=== PATIENT | male | born 1995 | race African-American/Black ===

== ENCOUNTER 2018-01-07 11:23 | Emergency (ER) | payer OTHER ==
[2018-01-07] MEDS: guaiFENesin SYRUP 200 MG/10 ML UDC PO (12:31)
[2018-01-07 13:04] LABS: HEMATOCRIT 39.8 % (42.0-52.0); HEMOGLOBIN 13.5 g/dl (13.5-17.5); MEAN CORPUSCULAR HEMOGLOBIN 29.5 pg (27.0-33.0); MEAN CORPUSCULAR HGB CONC 33.9 g/dl (32.0-36.5); MEAN CORPUSCULAR VOLUME 87.1 fl (80.0-96.0); PLATELET COUNT, AUTOMATED 325 10^3/uL (150-450); RED BLOOD COUNT 4.57 10^6/uL (4.30-6.10); WHITE BLOOD COUNT 6.5 10^3/uL (4.0-10.0)
[2018-01-07 13:17] LABS: AMPHETAMINES LEVEL URINE NEGATIVE (NEGATIVE); BARBITURATES URINE NEGATIVE (NEGATIVE); BENZODIAZEPINES URINE NEGATIVE (NEGATIVE); CANNABINOIDS URINE POSITIVE (NEGATIVE); COCAINE METABOLITE URINE NEGATIVE (NEGATIVE); METHADONE URINE NEGATIVE (NEGATIVE); OPIATES URINE NEGATIVE (NEGATIVE); PHENCYCLIDINE URINE NEGATIVE (NEGATIVE)
[2018-01-07 14:01] LABS: ACETAMINOPHEN LEVEL < 2.0 UG/ML (10.0-30.0); ALBUMIN 3.5 GM/DL (3.2-5.2); ALBUMIN/GLOBULIN RATIO 0.78 (1.00-1.93); ALKALINE PHOSPHATASE 65 U/L (45-117); ALT/SGPT 20 U/L (12-78); ANION GAP 7 MEQ/L (8-16); AST/SGOT 22 U/L (7-37); BILIRUBIN,DIRECT 0.1 MG/DL (0.0-0.2); BILIRUBIN,TOTAL 0.3 MG/DL (0.2-1.0); BLOOD UREA NITROGEN 13 MG/DL (7-18); CALCIUM LEVEL 8.5 MG/DL (8.5-10.1); CARBON DIOXIDE LEVEL 26 MEQ/L (21-32); CHLORIDE LEVEL 105 MEQ/L (98-107); CREATININE FOR GFR 0.86 MG/DL (0.70-1.30); ETHYL ALCOHOL (ETHANOL) < 0.003 % (0.000-0.010); GLOMERULAR FILTRATION RATE > 60.0 (>60); GLUCOSE, FASTING 84 MG/DL (70-100); POTASSIUM SERUM 4.2 MEQ/L (3.5-5.1); SALICYLATE LEVEL < 1.7 MG/DL (5.0-30.0); SODIUM LEVEL 138 MEQ/L (136-145); THYROID STIMULATING HORMONE 0.591 uIU/ML (0.358-3.740)
[2018-01-07 20:08] LABS: CK-MB VALUE MASS < 1.0 NG/ML (<3.6); CPK CREATINE PHOSPHOKINASE 305 U/L (39-308); MB/CK RELATIVE INDEX 0.33 (< OR =4); TROPONIN I < 0.02 NG/ML (< 0.10)
== END 2018-01-07 21:51 ==
LOC: M ED 11:23
DX: R45.851 Suicidal ideations (principal); F32.9 Major depressive disorder, single episode, unspecified; R00.1 Bradycardia, unspecified; J45.909 Unspecified asthma, uncomplicated; Z87.891 Personal history of nicotine dependence
CPT/HCPCS: 93005

== ENCOUNTER 2018-01-27 14:12 | Emergency (ER) | payer OTHER | END 2018-01-27 15:02 | disposition home or self-care (01) | LOC: M ED 14:12 | DX: S60.221A Contusion of right hand, initial encounter (principal); W22.01XA Walked into wall, initial encounter; Y92.099 Unspecified place in other non-institutional residence as the place of occurrence of the external cause; Y93.9 Activity, unspecified; Y99.9 Unspecified external cause status; R45.4 Irritability and anger; F32.9 Major depressive disorder, single episode, unspecified; Z79.899 Other long term (current) drug therapy | CPT/HCPCS: 73130 ==

== ENCOUNTER 2018-07-13 13:59 | Inpatient (IN) | payer OTHER ==
[~2018-07-13] VITALS: Ht 188 cm; Wt 82.3 kg
[~2018-07-13 13:59] MED LIST: ARIP1TAB6 PO; IBUP-1022 PO; MIRT15TA3 PO; PARO20TA3 PO
[2018-07-13 14:47] LABS: HEMATOCRIT 42.1 % (42.0-52.0); HEMOGLOBIN 14.3 g/dl (13.5-17.5); MEAN CORPUSCULAR VOLUME 88.3 fl (80.0-96.0); PLATELET COUNT, AUTOMATED 309 10^3/uL (150-450); RED BLOOD COUNT 4.77 10^6/uL (4.30-6.10); WHITE BLOOD COUNT 5.9 10^3/uL (4.0-10.0)
[2018-07-13] MEDS ORDERED: VENTAER INH (14:53)
[2018-07-13] MEDS ORDERED: WELLTAB40 PO (14:53)
[2018-07-13 15:24] LABS: ACETAMINOPHEN LEVEL < 2.0 UG/ML (10.0-30.0); ALBUMIN 4.1 GM/DL (3.2-5.2); ALT/SGPT 15 U/L (12-78); BILIRUBIN,DIRECT 0.2 MG/DL (0.0-0.2); BILIRUBIN,TOTAL 0.7 MG/DL (0.2-1.0); BLOOD UREA NITROGEN 15 MG/DL (7-18); CALCIUM LEVEL 9.4 MG/DL (8.5-10.1); CARBON DIOXIDE LEVEL 29 MEQ/L (21-32); CHLORIDE LEVEL 104 MEQ/L (98-107); CREATININE FOR GFR 1.05 MG/DL (0.70-1.30); ETHYL ALCOHOL (ETHANOL) < 0.003 % (0.000-0.010); GLOMERULAR FILTRATION RATE > 60.0 (>60); GLUCOSE, FASTING 90 MG/DL (70-100); POTASSIUM SERUM 4.3 MEQ/L (3.5-5.1); SALICYLATE LEVEL < 1.7 MG/DL (5.0-30.0); SODIUM LEVEL 139 MEQ/L (136-145); TOTAL PROTEIN 8.3 GM/DL (6.4-8.2)
[2018-07-13 16:03] LABS: AMPHETAMINES LEVEL URINE NEGATIVE (NEGATIVE); BARBITURATES URINE NEGATIVE (NEGATIVE); BENZODIAZEPINES URINE NEGATIVE (NEGATIVE); CANNABINOIDS URINE POSITIVE (NEGATIVE); COCAINE METABOLITE URINE NEGATIVE (NEGATIVE); METHADONE URINE NEGATIVE (NEGATIVE); OPIATES URINE NEGATIVE (NEGATIVE); PHENCYCLIDINE URINE NEGATIVE (NEGATIVE)
[2018-07-13] MEDS ORDERED: LORazepam 1 MG TAB PO STA (16:39)
[2018-07-13] MEDS ORDERED: MOM 30ML SUSPENSION UDC PO PRN (18:45)
[2018-07-13] MEDS ORDERED: ACETAMINOPHEN TAB 650MG DOSE (2X325MG) PO PRN (18:45)
[2018-07-13] MEDS ORDERED: MAALOX 30 ML SUSP *UDC PO PRN (18:45)
[2018-07-13 20:19] VITALS: BP 131/83
[2018-07-13] MEDS: ESCITALOPRAM OXALATE 10 MG TAB (LEXAPRO) PO SCH (21:30)
[2018-07-14] MEDS: OLANZapine ORAL DISINTEGRATING TAB 5MG PO PRN (06:22)
[2018-07-14 06:39] VITALS: BP 124/75
[2018-07-14] MEDS: ESCITALOPRAM OXALATE 10 MG TAB (LEXAPRO) PO SCH (09:00)
--- NOTE | 2018-07-14 09:58 | HPEPDOC ---
General Date of Admission Jul 13, 2018 at 18:33 Date of Service: Jul 14, 2018 Attending Physician: DESTINY FERNANDEZ MD Chief Complaint The patient is a 22-year-old male admitted with a reason for visit of Unspecified Depressive D/O. History of Present Illness Patient is a 22-year-old admitted to inpatient psychiatric unit on account of suicidal ideation. Patient also admitted to auditory hallucinations. A day prior to presentation tried to cut himself with a knife. On assessment, he reports a prior medical history significant for asthma for which he has an inhaler he uses as needed. Currently, he denies any symptoms, denies chest pain, denies shortness of breath, weakness, nausea, abdominal pain, chills, fever. Home Medications Scheduled Bupropion HCl (Wellbutrin Xl) 300 Mg Tab.er.24h, 300 MG PO DAILY, (Reported) Scheduled PRN Albuterol Sulfate (Ventolin Hfa) 18 Gm Hfa.aer.ad, 2 PUFF INH Q4H PRN for SHORTNESS OF BREATH, (Reported) Allergies Coded Allergies: No Known Allergies (Unverified , 01/07/18) Past Medical History Medical History Asthma Surgical History Denies Family History denies Social History * Smoker: Denies Alcohol: occationally Drugs: marijuana A-FIB/CHADSVASC A-FIB History Current/History of A-Fib/PAF?: No Current PO Anticoag Therapy: No Review of Systems Other systems A 10 point pertinent review of systems was completed, negative except as stated in the history of presenting illness. Physical Examination Other physical findings GENERAL: NAD SKIN : Warm, dry intact HEENT: Atraumatic, normocephalic, PERRL, moist mucous membrane CARDIOVASCULAR: Regular rate and rhythm, S1S2, no JVD, no edema, distal pulses + and palpable RESP: CTAB, no accessory muscle use noted ABDOMEN: BS+ non distended non tender MS: no joint deformities NEURO: Alert and oriented x 3, CN2-12 grossly intact PSYCH: no anxiety or agitation, depressed affect. Vital Signs Vital Signs Date Time Temp Pulse Resp B/P (MAP) Pulse Ox O2 Delivery O2 Flow Rate FiO2 07/14/18 08:32 Room Air 07/14/18 06:39 98.4 67 14 124/75 (91) 07/13/18 20:31 98 Laboratory Data Labs 24H Laboratory Tests 2 07/13/18 14:35: Nucleated Red Blood Cells % (auto) 0.0, Anion Gap 6L, Glomerular Filtration Rate > 60.0, Calcium Level 9.4, Aspartate Amino Transf (AST/SGOT) 18, Alanine Aminotransferase (ALT/SGPT) 15, Alkaline Phosphatase 57, Total Bilirubin 0.7, Direct Bilirubin 0.2, Total Protein 8.3H, Albumin 4.1, Albumin/Globulin Ratio 0.98L, Thyroid Stimulating Hormone (TSH) 0.680, Salicylates Level < 1.7L, Acetaminophen Level < 2.0L, Ethyl Alcohol Level < 0.003 07/13/18 15:13: Urine Amphetamines Screen NEGATIVE, Urine Benzodiazepines Screen NEGATIVE, Urine Opiates Screen NEGATIVE, Urine Methadone Screen NEGATIVE, Urine Barbiturates Screen NEGATIVE, Urine Phencyclidine Screen NEGATIVE, Urine Cocaine Metabolite Screen NEGATIVE, Urine Cannabinoids Screen POSITIVEH CBC/BMP Laboratory Tests 07/13/18 14:35 Red Blood Count 4.77, Mean Corpuscular Volume 88.3, Mean Corpuscular Hemoglobin 30.0, Mean Corpuscular Hemoglobin Concent 34.0, Red Cell Distribution Width 12.4 Assessment/Plan Asthma -No current exacerbation present -Prescribe albuterol for use as needed Polysubstance abuse with THC -management by primary team Suicidal Ideation -Management by primary team DVT prophylaxis -not indicated, patient is frequently ambulatory At this time patient has no acute medical problems or underlying comorbidities requiring active follow-up. Acute problems are being managed by primary team. Medical team will sign off, please re-consult as needed. Plan / VTE VTE Prophylaxis Ordered?: No VTE Exclusion Mechanical Proph: Low Risk for VTE ANNA DIAMOND Jul 14, 2018 09:58
[2018-07-14] MEDS ORDERED: ALBUTEROL 90 MCG/ACT 8GM HFA INHALER INH PRN (13:30)
--- NOTE | 2018-07-14 14:50 | MHHPEPDOC ---
General Date Of Admission: Jul 13, 2018 Legal Status: 9.39 Chief Complaint He bought himself to the ED for SI and self inflicted wounds on his arm History of Present Illness HISTORY OF THE PRESENT ILLNESS: Patient is a 22 -year-old , male, who, according to ED report: "Patient arrived with self-inflicted superficial cuts to his forearm & suicidal ideation. He stated to [facility] that he was depressed & suicidal. Following medical clearance, MHE was completed. Upon entering the exam room patient was noted to pacing rapidly in the room & breathing heavily. This continued throughout interview. He was quite guarded & kept repeating that he was "fine" & that coming here was a mistake. He repeatedly stated that he wanted to go back to [place]. Patient was agitated, irritable & very anxious, crying throughout the interview. At times he had to stop to compose himself. He admitted that he has been upset about "everything", including his life here at [place] & also back home in [place]. He did not elaborate upon this, aside from saying that his girlfriend of 1 year ended their relationship 2 days ago. He remained quite agitated & insisted that he didn't want help. When offered a PRN, he accepted willingly." Psychiatric Review of Systems Depression (2 or more weeks): depressed mood, insomnia/hypersomnia, feelings of excess/guilt, feelings of worthlesness, decreased energy, difficulty concentrating, psychomotor changes, suicidal thoughts, other (hopeless and helpless) Miriam (4 or more days of): denies Psychosis: auditory hallucination (Like random noises like a phone buzzing), paranoia PTSD: denies Anxiety: gen/non-specific anxiety, situational anxiety, stressor related anxiety Anxiety/ 6 months or more of: restlessness, keyed up, easily fatigued, difficulty concentrating, muscle tension, sleep disturbance Past Psychiatric History Previous Psychiatric Diagnosis: Depression and bipolar disorder Previous [facility]iatric [facility]: [facility] Suicide Attempts: Denies Psychiatric Follow-up: [facility] Psychiatric medications: Welbutrin 300 mgs po daily. Past Medical History Medical Problems Denies Head Injury: No Seizures: No Hospitalizations: Yes Surgeries: No Family Medical/Psychiatric HX Medical Problems Denies Psychiatric Disorders: No Addiction: No Suicide Attemps/Completions: Yes (his mother) Addiction History alcohol (not anymore. the last time was 3 days ago. ) Social History Childhood: Was born and raised in [place], grew up with mom and dad, two broth ers and one sister, got along with them, enjoyed going to school.. Abuse/Trauma: Denies Current Living Situation: Lives on post Education: HS diploma Employment: [employer] Social Support: Behavioral health Legal: Denies Marital: single, no children. Mental Status Examination General Appearance: well groomed, appears stated age, hospital scubs/clothing Build: average Demeanor: other (sleepy, with his eyes closed during the interview) Eye Contact: poor (he was sleepy, was sitting with eyes closed) Activity: slowed Behavior: cooperative, other (very sleepy, pened his eyes only 3x) Speech: slurred, low in volume, non-spontaneous, impoverished (Patient was sleepy, wouldn't open his eyes, his responses were very short) Mood: depressed, anxious Affect: constricted, appropriate, congruent Thought Process: depressed, slow Thought Content (Delusions): none reported Thought Content (Other): none reported Thought Content (Aggressive): none reported Perception (Hallucinations): none reported Perception (Other): none reported Cognition (Impairment of): attention/concentration Cognition(Intelligence Est.): average Oriented: Awake, Alert, Oriented times three Insight: poor Judgment: Poor Psychosis: Denies Assessment Patient was very sleepy, he cooperated with the interview but he said he almost didn't sleep, because he was admitted last night. Initial Treatment Plan 1. Patient was admitted on a [9.39] status. 2. Complete history was obtained. 3. With patients permission, family will be contacted and database will be expanded. 4. Patients medication regimen will be reviewed and changed accordingly. 5. Patient will be provided with protected environment. 6. Patient will be treated with individual, group, and milieu therapies. 7. Patient will receive supportive psych-education. 8. Discharge planning will commence immediately. 9. Outpatient follow-up treatment will be strongly recommended. 10. The initial treatment plan will focus initially on: * Depression. * anxiety * Risk for suicide. * Substance abuse. ESTIMATED LENGTH OF STAY: 5-7 DAYS. TIME SPENT COUNSELING AND COORDINATING INITIAL CARE: 45 minutes. Vital Signs Vital Signs Date Time Temp Pulse Resp B/P (MAP) Pulse Ox O2 Delivery O2 Flow Rate FiO2 07/14/18 08:32 Room Air 07/14/18 06:39 98.4 67 14 124/75 (91) 07/13/18 20:31 98 Laboratory Data 24H Labs Laboratory Tests 2 07/13/18 14:35: Nucleated Red Blood Cells % (auto) 0.0, Anion Gap 6L, Glomerular Filtration Rate > 60.0, Calcium Level 9.4, Aspartate Amino Transf (AST/SGOT) 18, Alanine Aminotransferase (ALT/SGPT) 15, Alkaline Phosphatase 57, Total Bilirubin 0.7, Direct Bilirubin 0.2, Total Protein 8.3H, Albumin 4.1, Albumin/Globulin Ratio 0.98L, Thyroid Stimulating Hormone (TSH) 0.680, Salicylates Level < 1.7L, Acetaminophen Level < 2.0L, Ethyl Alcohol Level < 0.003 07/13/18 15:13: Urine Amphetamines Screen NEGATIVE, Urine Benzodiazepines Screen NEGATIVE, Urine Opiates Screen NEGATIVE, Urine Methadone Screen NEGATIVE, Urine Barbiturates Screen NEGATIVE, Urine Phencyclidine Screen NEGATIVE, Urine Cocaine Metabolite Screen NEGATIVE, Urine Cannabinoids Screen POSITIVEH CBC/BMP Laboratory Tests 07/13/18 14:35 Red Blood Count 4.77, Mean Corpuscular Volume 88.3, Mean Corpuscular Hemoglobin 30.0, Mean Corpuscular Hemoglobin Concent 34.0, Red Cell Distribution Width 12.4 Medications Scheduled Bupropion HCl (Wellbutrin Xl) 300 Mg Tab.er.24h, 300 MG PO DAILY, (Reported) Scheduled PRN Albuterol Sulfate (Ventolin Hfa) 18 Gm Hfa.aer.ad, 2 PUFF INH Q4H PRN for SHORTNESS OF BREATH, (Reported) Allergies Coded Allergies: No Known Allergies (Unverified , 01/07/18) SOLITARIO YADAV MD Jul 14, 2018 14:50
[2018-07-14 18:41] VITALS: BP 114/57
[2018-07-14] MEDS: traZODone 50 MG TAB PO PRN (20:22)
[2018-07-15 06:39] VITALS: BP 108/56
[2018-07-15] MEDS: buPROPion **XL** TABLET 150MG (WELLBUTRIN XL) PO SCH (08:46)
[2018-07-15] MEDS: OLANZapine ORAL DISINTEGRATING TAB 5MG PO PRN (16:08)
[2018-07-15 18:00] VITALS: BP 123/63
--- NOTE | 2018-07-15 19:25 | MHIPNPDOC ---
[facility] Progress Note Progress Note DATE OF SERVICE: 07/15/18 HISTORY: Patient is a 22 -year-old , male, who, according to ED report: "Patient arrived with self-inflicted superficial cuts to his forearm & suicidal ideation. He stated to [facility] that he was depressed & suicidal. Following medical clearance, MHE was completed. Upon entering the exam room patient was noted to pacing rapidly in the room & breathing heavily. This continued throughout interview. He was quite guarded & kept repeating that he was "fine" & that coming here was a mistake. He repeatedly stated that he wanted to go back to [place]. Patient was agitated, irritable & very anxious, crying throughout the interview. At times he had to stop to compose himself. He admitted that he has been upset about "everything", including his life here at [place] & also back home in [place]. He did not elaborate upon this, aside from saying that his girlfriend of 1 year ended their relationship 2 days ago. He remained quite agitated & insisted that he didn't want help. When offered a PRN, he accepted willingly." VITAL SIGNS: See below. NEW TEST RESULTS: See below CURRENT MEDICATIONS: See below. MENTAL STATUS EXAMINATION: General Appearance: well groomed, appears stated age, hospital scubs/clothing Build: average Demeanor: cooperative, awake, pleasant Eye Contact: Good Activity: Average, he doesn't exhibit psychomotor retardation or agitation Behavior: cooperative, pleasant Speech: slurred, low in volume, spontaneous and fluent Mood: depressed Affect: constricted, less flat, appropriate, congruent Thought Process: depressed Thought Content (Delusions): none reported Thought Content (Other): none reported, he denies SI/HI Thought Content (Aggressive): none reported Perception (Hallucinations): none reported Perception (Other): none reported Cognition (Impairment of): attention/concentration Cognition(Intelligence Est.): average Oriented: Awake, Alert, Oriented times three Insight: poor Judgment: Poor Psychosis: Denies DIAGNOSES: 1. Unspecified mood disorder 2. Marijuana use Disorder 3. R/O Personality Disorder. ASSESSMENT: The patient is better today, he is awake, he reports feeling better, he wants to know if he will be discharged on Friday and I explained we don't do [employer] discharges on Fridays. he was receptive, took it well, said he is going to keep attending groups to learn coping skills. He denies feeling suicidal or having thoughts of self harm at this time, he denies HI. MANAGEMENT PLAN: Will continue with the same treatment plan TIME SPENT: 20 minutes. Vital Signs Vital Signs Date Time Temp Pulse Resp B/P (MAP) Pulse Ox O2 Delivery O2 Flow Rate FiO2 07/15/18 18:00 98.7 62 16 123/63 (83) 07/15/18 08:10 Room Air 07/13/18 20:31 98 Current Medications Current Medications Acetaminophen (Tylenol Tab) 650 mg Q6HP PRN PO HEADACHE or DISCOMFORT; Start 07/13/18 at 18:45 Al Hydrox/Mg Hydrox/Simethicone (Mylanta) 30 ml Q4HP PRN PO HEARTBURN/INDIGESTION; Start 07/13/18 at 18:45 Albuterol Sulfate (Proventil, Ventolin Hfa) 2 puff Q4HP PRN INH SHORTNESS OF BREATH; Start 07/14/18 at 13:30 Bupropion HCl (Wellbutrin Xl) 300 mg DAILY PO Last administered on 07/15/18at 08:46; Start 07/15/18 at 09:00 Escitalopram Oxalate (Lexapro) 10 mg DAILY PO ; Start 07/13/18 at 09:00; Stop 07/14/18 at 15:27; Status DC Home Med (Med Rec Complete!) ASDIRECTED XX ; Start 07/13/18 at 15:00; Stop 07/13/18 at 15:01; Status DC Lorazepam (Ativan) 1 mg STAT STAT PO Last administered on 07/13/18at 16:45; Start 07/13/18 at 16:39; Stop 07/13/18 at 16:40; Status DC Magnesium Hydroxide (Milk Of Magnesia) 30 ml DAILYPRN PRN PO CONSTIPATION; Start 07/13/18 at 18:45 Olanzapine (ZyPREXA ZYDIS) 5 mg Q6HP PRN PO ANXIETY/AGITATION Last administered on 07/15/18at 16:08; Start 07/13/18 at 18:45 Trazodone HCl (Desyrel) 50 mg QHSP PRN PO INSOMNIA Last administered on 07/14/18at 20:22; Start 07/13/18 at 18:45 Allergies Coded Allergies: No Known Allergies (Unverified , 01/07/18) SOLITARIO YADAV MD Jul 15, 2018 18:58
[2018-07-15] MEDS: traZODone 50 MG TAB PO PRN (20:49)
[2018-07-16 06:48] VITALS: BP 133/66
[2018-07-16] MEDS: OLANZapine ORAL DISINTEGRATING TAB 5MG PO PRN (08:37)
[2018-07-16] MEDS: buPROPion **XL** TABLET 150MG (WELLBUTRIN XL) PO SCH (08:37)
[2018-07-16 18:00] VITALS: BP 128/60
[2018-07-16] MEDS: traZODone 50 MG TAB PO PRN (21:18)
--- NOTE | 2018-07-16 21:28 | MHIPNPDOC ---
[facility] Progress Note Progress Note DATE OF SERVICE: 07/16/18 HISTORY: Patient is a 22 -year-old , male, who, according to ED report: "Patient arrived with self-inflicted superficial cuts to his forearm & suicidal ideation. He stated to [facility] that he was depressed & suicidal. Following medical clearance, MHE was completed. Upon entering the exam room patient was noted to pacing rapidly in the room & breathing heavily. This continued throughout interview. He was quite guarded & kept repeating that he was "fine" & that coming here was a mistake. He repeatedly stated that he wanted to go back to [place]. Patient was agitated, irritable & very anxious, crying throughout the interview. At times he had to stop to compose himself. He admitted that he has been upset about "everything", including his life here at [place] & also back home in [place]. He did not elaborate upon this, aside from saying that his girlfriend of 1 year ended their relationship 2 days ago. He remained quite agitated & insisted that he didn't want help. When offered a PRN, he accepted willingly." VITAL SIGNS: See below. NEW TEST RESULTS: See below CURRENT MEDICATIONS: See below. MENTAL STATUS EXAMINATION: General Appearance: well groomed, appears stated age, hospital scrubs/clothing Build: average Demeanor: cooperative, sleepy, pleasant Eye Contact: Good Activity: Slow, he is laying in bed, he is waking up from a nap Behavior: cooperative, pleasant Speech: slurred, low in volume, spontaneous and fluent Mood: depressed Affect: constricted, less flat, appropriate, congruent Thought Process: depressed Thought Content (Delusions): none reported Thought Content (Other): none reported, he denies SI/HI Thought Content (Aggressive): none reported Perception (Hallucinations): none reported Perception (Other): none reported Cognition (Impairment of): attention/concentration Cognition(Intelligence Est.): average Oriented: Awake, Alert, Oriented times three Insight: poor Judgment: Poor Psychosis: Denies DIAGNOSES: 1. Unspecified mood disorder 2. Marijuana use Disorder 3. R/O Personality Disorder. ASSESSMENT:The patient was resting in bed, sleepy and he reported he was taking a nap. He slept well last night, his appetite is good, he denies SI or Hi, denies AV hallucinations or delusions, he says he feels better. MANAGEMENT PLAN: Will continue with the same treatment plan TIME SPENT: 20 minutes. Vital Signs Vital Signs Date Time Temp Pulse Resp B/P (MAP) Pulse Ox O2 Delivery O2 Flow Rate FiO2 07/16/18 18:00 98.5 56 16 128/60 (82) 07/16/18 11:09 Room Air 07/13/18 20:31 98 Current Medications Current Medications Acetaminophen (Tylenol Tab) 650 mg Q6HP PRN PO HEADACHE or DISCOMFORT; Start 07/13/18 at 18:45 Al Hydrox/Mg Hydrox/Simethicone (Mylanta) 30 ml Q4HP PRN PO HEARTBURN/INDIGESTION; Start 07/13/18 at 18:45 Albuterol Sulfate (Proventil, Ventolin Hfa) 2 puff Q4HP PRN INH SHORTNESS OF BREATH; Start 07/14/18 at 13:30 Bupropion HCl (Wellbutrin Xl) 300 mg DAILY PO Last administered on 07/16/18at 08:37; Start 07/15/18 at 09:00 Escitalopram Oxalate (Lexapro) 10 mg DAILY PO ; Start 07/13/18 at 09:00; Stop 07/14/18 at 15:27; Status DC Home Med (Med Rec Complete!) ASDIRECTED XX ; Start 07/13/18 at 15:00; Stop 07/13/18 at 15:01; Status DC Lorazepam (Ativan) 1 mg STAT STAT PO Last administered on 07/13/18at 16:45; Start 07/13/18 at 16:39; Stop 07/13/18 at 16:40; Status DC Magnesium Hydroxide (Milk Of Magnesia) 30 ml DAILYPRN PRN PO CONSTIPATION; Start 07/13/18 at 18:45 Olanzapine (ZyPREXA ZYDIS) 5 mg Q6HP PRN PO ANXIETY/AGITATION Last administered on 07/16/18at 08:37; Start 07/13/18 at 18:45 Trazodone HCl (Desyrel) 50 mg QHSP PRN PO INSOMNIA Last administered on 07/16/18at 21:18; Start 07/13/18 at 18:45 Allergies Coded Allergies: No Known Allergies (Unverified , 01/07/18) SOLITARIO YADAV MD Jul 16, 2018 21:28
[2018-07-17 06:34] VITALS: BP 128/77
[2018-07-17] MEDS: OLANZapine ORAL DISINTEGRATING TAB 5MG PO PRN (08:21)
[2018-07-17] MEDS: buPROPion **XL** TABLET 150MG (WELLBUTRIN XL) PO SCH (08:21)
[2018-07-17 18:05] VITALS: BP 113/56
--- NOTE | 2018-07-17 21:07 | MHIPNPDOC ---
[facility] Progress Note Progress Note DATE OF SERVICE: 07/17/18 HISTORY: Patient is a 22 -year-old , male, who, according to ED report: "Patient arrived with self-inflicted superficial cuts to his forearm & suicidal ideation. He stated to [facility] that he was depressed & suicidal. Following medical clearance, MHE was completed. Upon entering the exam room patient was noted to pacing rapidly in the room & breathing heavily. This continued throughout interview. He was quite guarded & kept repeating that he was "fine" & that coming here was a mistake. He repeatedly stated that he wanted to go back to [place]. Patient was agitated, irritable & very anxious, crying throughout the interview. At times he had to stop to compose himself. He admitted that he has been upset about "everything", including his life here at [place] & also back home in [place]. He did not elaborate upon this, aside from saying that his girlfriend of 1 year ended their relationship 2 days ago. He remained quite agitated & insisted that he didn't want help. When offered a PRN, he accepted willingly." VITAL SIGNS: See below. NEW TEST RESULTS: See below CURRENT MEDICATIONS: See below. MENTAL STATUS EXAMINATION: General Appearance: well groomed, appears stated age, hospital scrubs/clothing Build: average Demeanor: cooperative, sleepy, pleasant Eye Contact: Good Activity: Slow, he is laying in bed, tired Behavior: cooperative, pleasant Speech: slurred, low in volume, spontaneous and fluent Mood: depressed Affect: brighter, appropriate, congruent Thought Process: hopeful, linear, coherent Thought Content (Delusions): none reported Thought Content (Other): none reported, he denies SI/HI Thought Content (Aggressive): none reported Perception (Hallucinations): none reported Perception (Other): none reported Cognition (Impairment of): attention/concentration Cognition(Intelligence Est.): average Oriented: Awake, Alert, Oriented times three Insight: improving Judgment: Improving Psychosis: Denies DIAGNOSES: 1. Unspecified mood disorder 2. Marijuana use Disorder 3. R/O Personality Disorder. ASSESSMENT: The patient has been resting, he is relaxed, he feels better because he reconciled with his GF. MANAGEMENT PLAN: Will continue with the same treatment plan TIME SPENT: 20 minutes. Vital Signs Vital Signs Date Time Temp Pulse Resp B/P (MAP) Pulse Ox O2 Delivery O2 Flow Rate FiO2 07/17/18 18:05 99.2 58 16 113/56 (75) 07/17/18 08:35 Room Air 07/13/18 20:31 98 Current Medications Current Medications Acetaminophen (Tylenol Tab) 650 mg Q6HP PRN PO HEADACHE or DISCOMFORT; Start 07/13/18 at 18:45 Al Hydrox/Mg Hydrox/Simethicone (Mylanta) 30 ml Q4HP PRN PO HEARTBURN/INDIGESTION; Start 07/13/18 at 18:45 Albuterol Sulfate (Proventil, Ventolin Hfa) 2 puff Q4HP PRN INH SHORTNESS OF BREATH; Start 07/14/18 at 13:30 Bupropion HCl (Wellbutrin Xl) 300 mg DAILY PO Last administered on 07/17/18 08:21; Start 07/15/18 at 09:00 Escitalopram Oxalate (Lexapro) 10 mg DAILY PO ; Start 07/13/18 at 09:00; Stop 07/14/18 at 15:27; Status DC Home Med (Med Rec Complete!) ASDIRECTED XX ; Start 07/13/18 at 15:00; Stop 07/13/18 at 15:01; Status DC Lorazepam (Ativan) 1 mg STAT STAT PO Last administered on 07/13/18at 16:45; Start 07/13/18 at 16:39; Stop 07/13/18 at 16:40; Status DC Magnesium Hydroxide (Milk Of Magnesia) 30 ml DAILYPRN PRN PO CONSTIPATION; Start 07/13/18 at 18:45 Olanzapine (ZyPREXA ZYDIS) 5 mg Q6HP PRN PO ANXIETY/AGITATION Last administered on 07/17/18 08:21; Start 07/13/18 at 18:45 Trazodone HCl (Desyrel) 50 mg QHSP PRN PO INSOMNIA Last administered on 07/16/18 21:18; Start 07/13/18 at 18:45 Allergies Coded Allergies: No Known Allergies (Unverified , 01/07/18) SOLITARIO YADAV MD Jul 17, 2018 21:07
[2018-07-17] MEDS: traZODone 50 MG TAB PO PRN (22:37)
[2018-07-18 06:37] VITALS: BP 140/71
[2018-07-18] MEDS: buPROPion **XL** TABLET 150MG (WELLBUTRIN XL) PO SCH (08:19)
[2018-07-18] MEDS: OLANZapine ORAL DISINTEGRATING TAB 5MG PO PRN (08:19)
[2018-07-18 18:06] VITALS: BP 130/73
[2018-07-18] MEDS: traZODone 50 MG TAB PO PRN (23:15)
[2018-07-19 06:48] VITALS: BP 135/76
[2018-07-19] MEDS: OLANZapine ORAL DISINTEGRATING TAB 5MG PO PRN (08:16)
[2018-07-19] MEDS: buPROPion **XL** TABLET 150MG (WELLBUTRIN XL) PO SCH (08:16)
[2018-07-19] MEDS: hydrOXYzine 25 MG TAB PO SCH ×3 (12:46→23:08)
[2018-07-19] MEDS ORDERED: HYDR-3363 PO (17:04)
[2018-07-19] MEDS ORDERED: TRAZ-252 PO (17:04)
[2018-07-19] MEDS ORDERED: WELLTAB40 PO (17:04)
[2018-07-19 18:07] VITALS: BP 130/82
[2018-07-19] MEDS: traZODone 50 MG TAB PO PRN (22:54)
[2018-07-20] MEDS: hydrOXYzine 25 MG TAB PO SCH ×3 (06:33→12:18)
[2018-07-20 06:43] VITALS: BP 106/52
[2018-07-20] MEDS: buPROPion **XL** TABLET 150MG (WELLBUTRIN XL) PO SCH (08:40)
== END 2018-07-20 12:25 | disposition home or self-care (01) | DRG 885 ==
LOC: M ED 13:59 → M ED INP 18:33 → M PSY 20:49
PROVIDERS: ADMIT Psychiatry & Neurology Psychiatry; ATTEND Psychiatry & Neurology Child & Adolescent Psychiatry
DX: F39 Unspecified mood [affective] disorder (principal); R45.851 Suicidal ideations; F12.90 Cannabis use, unspecified, uncomplicated

== ENCOUNTER 2018-08-14 01:39 | Inpatient (IN) | payer MEDICAID, OTHER, SELFPAY ==
[~2018-08-14] VITALS: Ht 185.4 cm; Wt 84.7 kg
[~2018-08-14 01:39] MED LIST changes: +HYDR-3363 PO; +TRAZ-252 PO; +VENTAER INH; +WELLTAB40 PO
[2018-08-14 02:12] LABS: HEMATOCRIT 41.8 % (42.0-52.0); HEMOGLOBIN 14.5 g/dl (13.5-17.5); MEAN CORPUSCULAR HGB CONC 34.7 g/dl (32.0-36.5); MEAN CORPUSCULAR VOLUME 89.3 fl (80.0-96.0); PLATELET COUNT, AUTOMATED 311 10^3/uL (150-450); RED BLOOD COUNT 4.68 10^6/uL (4.30-6.10); WHITE BLOOD COUNT 5.4 10^3/uL (4.0-10.0)
[2018-08-14 02:38] LABS: AMPHETAMINES LEVEL URINE NEGATIVE (NEGATIVE); BARBITURATES URINE NEGATIVE (NEGATIVE); BENZODIAZEPINES URINE NEGATIVE (NEGATIVE); CANNABINOIDS URINE POSITIVE (NEGATIVE); COCAINE METABOLITE URINE NEGATIVE (NEGATIVE); METHADONE URINE NEGATIVE (NEGATIVE); OPIATES URINE NEGATIVE (NEGATIVE); PHENCYCLIDINE URINE NEGATIVE (NEGATIVE)
[2018-08-14 02:50] LABS: ACETAMINOPHEN LEVEL < 2.0 UG/ML (10.0-30.0); ALBUMIN 4.1 GM/DL (3.2-5.2); ALT/SGPT 16 U/L (12-78); BILIRUBIN,DIRECT 0.1 MG/DL (0.0-0.2); BILIRUBIN,TOTAL 0.2 MG/DL (0.2-1.0); BLOOD UREA NITROGEN 15 MG/DL (7-18); CALCIUM LEVEL 8.8 MG/DL (8.5-10.1); CARBON DIOXIDE LEVEL 26 MEQ/L (21-32); CHLORIDE LEVEL 108 MEQ/L (98-107); CREATININE FOR GFR 0.88 MG/DL (0.70-1.30); ETHYL ALCOHOL (ETHANOL) 0.082 % (0.000-0.010); GLOMERULAR FILTRATION RATE > 60.0 (>60); GLUCOSE, FASTING 94 MG/DL (70-100); POTASSIUM SERUM 3.9 MEQ/L (3.5-5.1); SALICYLATE LEVEL < 1.7 MG/DL (5.0-30.0); SODIUM LEVEL 142 MEQ/L (136-145); TOTAL PROTEIN 8.6 GM/DL (6.4-8.2)
[2018-08-14] MEDS ORDERED: MOM 30ML SUSPENSION UDC PO PRN (07:00)
[2018-08-14] MEDS ORDERED: NICOTINE 21MG/24HR 1 EA TRANSDERMAL TD PRN (07:00)
[2018-08-14] MEDS ORDERED: MAALOX 30 ML SUSP *UDC PO PRN (07:00)
[2018-08-14 08:38] VITALS: BP 138/80
--- NOTE | 2018-08-14 12:35 | HPEPDOC ---
General Date of Admission Aug 14, 2018 at 06:56 Date of Service: Aug 14, 2018 Chief Complaint The patient is a 22-year-old male admitted with a reason for visit of Unspecified Depressive Disorder. Source: Patient History of Present Illness Patient is a 22-year-old admitted to inpatient psychiatric unit on account of suicidal ideation. He was walking down the highway intoxicated with knife in hand. Has prior cutting history. He reports a prior medical history significant for asthma and allergies for which he has an inhaler he uses as needed. Currently, he denies any symptoms, denies chest pain, denies shortness of breath, weakness, nausea, abdominal pain, chills, fever. Home Medications Scheduled PRN Albuterol Sulfate (Ventolin Hfa) 18 Gm Hfa.aer.ad, 2 PUFF INH Q4H PRN for SHORTNESS OF BREATH, (Reported) Allergies Coded Allergies: No Known Allergies (Unverified , 08/14/18) Past Medical History Medical History asthma Surgical History none Family History Discussed with patient does not know about a significant medical problems in the family Social History * Smoker: Denies Alcohol: occationally Drugs: marijuana A-FIB/CHADSVASC A-FIB History Current/History of A-Fib/PAF?: No Review of Systems Constitutional: Denies: Chills, Fever, Night Sweats Eyes: Denies: Pain, Vision change ENT: Denies: Head Aches, Ear Pain, Dysphagia Skin: Denies: Rash, Lesions, Breakdown Pulmonary: Denies: Dyspnea, Cough Cardiovascular: Denies: Chest Pain, Palpitations, Orthopnea, Paroxysmal Noc. Dyspnea, Lt Headedness Gastrointestinal: Denies: Nausea, Vomiting, Abdominal Pain, Diarrhea Hematologic: Denies: Bruising, Bleeding Excessively Musculoskeletal: Denies: Neck Pain, Back Pain, Joint Pain, Muscle Pain, Spasms Physical Examination General Exam: Positive: Alert, Cooperative, No Acute Distress Eye Exam: Positive: PERRLA, Conjunctiva & lids normal, EOMI; Negative: Sclera icteric ENT Exam: Positive: Atraumatic, Mucous membr. moist/pink, Pharynx Normal Neck Exam: Positive: Supple; Negative: JVD, thyromegaly Chest Exam: Positive: Clear to auscultation, Normal air movement Heart Exam: Positive: Rate Normal, Regular Rhythm, Normal S1, Normal S2; Negative: Murmurs, Rubs Abdomen Exam: Positive: Normal bowel sounds, Soft; Negative: Tenderness, Hepatospenomegaly Extremity Exam: Positive: Normal pulses; Negative: Clubbing, Cyanosis, Edema Skin Exam: Positive: Nl turgor and temperature; Negative: Breakdown, Lesion Vital Signs Vital Signs Date Time Temp Pulse Resp B/P (MAP) Pulse Ox O2 Delivery O2 Flow Rate FiO2 08/14/18 08:38 98.3 66 18 138/80 (99) 08/14/18 08:14 98 08/14/18 06:13 Room Air Laboratory Data Labs 24H Laboratory Tests 2 08/14/18 01:49: Nucleated Red Blood Cells % (auto) 0.0, Anion Gap 8, Glomerular Filtration Rate > 60.0, Calcium Level 8.8, Aspartate Amino Transf (AST/SGOT) 16, Alanine Aminotransferase (ALT/SGPT) 16, Alkaline Phosphatase 57, Total Bilirubin 0.2, Direct Bilirubin 0.1, Total Protein 8.6H, Albumin 4.1, Albumin/Globulin Ratio 0.91L, Thyroid Stimulating Hormone (TSH) 1.340, Salicylates Level < 1.7L, Urine Amphetamines Screen NEGATIVE, Urine Benzodiazepines Screen NEGATIVE, Urine Opiates Screen NEGATIVE, Urine Methadone Screen NEGATIVE, Acetaminophen Level < 2.0L, Urine Barbiturates Screen NEGATIVE, Urine Phencyclidine Screen NEGATIVE, Urine Cocaine Metabolite Screen NEGATIVE, Urine Cannabinoids Screen POSITIVEH, Ethyl Alcohol Level 0.082H CBC/BMP Laboratory Tests 08/14/18 01:49 Red Blood Count 4.68, Mean Corpuscular Volume 89.3, Mean Corpuscular Hemoglobin 31.0, Mean Corpuscular Hemoglobin Concent 34.7, Red Cell Distribution Width 12.5 Assessment/Plan Patient is a 22-year-old admitted to inpatient psychiatric unit on account of suicidal ideation. He was walking down the highway intoxicated with knife in hand. Has prior cutting history. He reports a prior medical history significant for asthma and allergies for which he has an inhaler he uses as needed. Depression as per psychiatry Asthma and seasonal allergies will make albuterol available prn to him. DVT prophylaxis not needed as patient frequently ambulatory. Plan / VTE VTE Prophylaxis Ordered?: No JASON JACKSON MD Aug 14, 2018 11:04
--- NOTE | 2018-08-14 12:53 | MHHPEPDOC ---
[facility] History & Physical History and Physical DATE OF ADMISSION: Aug 14, 2018 at 06:56 New Patient Stu Miner Age 22 Male Date of : 1995 Date of Service: 08/14/2018 Chief Complaint "I've been really depressed." History of Present Illness The patient, a 22-year old man, with a history of depression and a recent inpatient admission presents after being found walking down a street with a knife reportedly as a self-soothing measure. He has a noted history of cutting behaviors that he uses to soothe and that he reports he was fairly distraught after an argument with his girlfriend. 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 When the patient was met with, he describes fairly severe depression, loss of interest, motivation problems, irritability, concentration and focus deficits, and even auditory hallucinations or a very negative internal monologue. When his depression becomes excessive, he describes excessive guilt to the point of some delusional beliefs when his depression has gotten more intense and describes that he had stopped taking the medication he was given on the last visit namely Wellbutrin, as he felt that he did not need it and realizes that that's led to a relapse of his symptoms. Review Of Systems Depression: As above. Anxiety: The patient denies any excessive worry associated with physical symptoms. They deny any experience of discreet panic in the past. Miriam: The patient denies any episodes of euphoria/dysphoria associated with decreased need for sleep, hedonism, talkatively or impulsivity lasting longer than 5 days. Psychotic: As above. Trauma: The patient denies any traumatic events associated with nightmares or intrusive thoughts. Borderline: The patient screens negative for borderline personality at this junction. Past Psychiatric History The patient has a history of 2 prior psychiatric admissions. Reports no history of suicide attempts, only tried on Wellbutrin on previous admission. Reports that he did not notice strong effect and subsequently stopped taking it shortly after leaving. He has no current psychiatric followup. Allergies Please see below. Family Psychiatric History The patient reports his mother has a history of depression, but no histories of addiction or suicides in the family. Social History The patient grew up in the [facility]. Reported no significant trauma or abuse as a young man. Reports that he joined the to get out of "using drugs." He reported that he joined the fairly shortly after and subsequently was discharged under a general discharge under honorable circumstances, as he reports. He currently is homeless, living in a hotel room with very limited funds. He currently has no means of supporting himself. He left the roughly a week ago prior to the admission. Substance Abuse History The patient reports smoking tobacco in the past, but not currently. Reports drinking only several beers twice a month, no more than 5. Reports no history significant for illicit drug use with only experimentation with marijuana when he was younger. Medical History Patient has no significant past medical history. Mental Status Examination General: Well dressed with good hygiene Speech: Spontaneous and fluid Thought processes: Linear and logical MSK: Smooth and coordinated gait, no signs of tremors or involuntary orofacial movements Thought content: Hopeless, pessimistic Abstract reasoning, and computation: Intact Description of associations: Intact Description of abnormal or psychotic thoughts: Denies any suicidal or homicidal ideation. Denies any auditory or visual hallucinations. Does not appear to be responding to internal stimuli. Does not appear to be endorsing any bizarre or paranoid ideation. Judgment: Poor Insight: Poor Orientation: Alert and orientated 3 Cognition: Grossly normal Recent and remote memory: Intact Attention span and concentration: Mildy impaired Fund of knowledge: Adequate Mood: "Bad" Affect: Dysthymic with a constricted range Diagnoses Major depressive disorder, severe with psychotic features: Worsening. Tobacco use disorder, moderate: Stable. Suicidal ideation: Worsening. Assessment and Plan The patient, a 22-year-old man, with a history of service, but no overt trauma presents with a fairly severe depressive episode. He doesn't meet criteria for bipolar disorder, however, he'll likely need an antidepressant in order to keep his symptoms under control. He's not amenable to trying Wellbutrin again, as he reports that he didn't feel it's very helpful. He'll need inpatient treatment as his risk of relapse is quite high. Disposition The patient will need greater than 2 midnights of inpatient admission in order to stabilize his depressive symptoms and to secure his safety. Problem List 1. Suicidal thoughts. 2. Depression. 3. Self-harm. Initial Treatment Plan 1. Patient was admitted on a 9.39 legal status. 2. Complete history was obtained. 3. With patients permission, family will be contacted and database will be expanded. 4. Patients medication regimen will be reviewed and changed accordingly. 5. Patient will be provided with protected environment. 6. Patient will be treated with individual, group, and milieu therapies. 7. Patient will receive supportive psych-education. 8. Discharge planning will commence immediately. 9. Outpatient follow-up treatment will be strongly recommended. 10. We'll start 50 mg of sertraline, discussed risks, benifits as well as potential side effects with patient as well as alternative treatments, patient selected this option. Estimated Length Of Stay Four days. Time Spent 45 mins of face to face time Vital Signs Vital Signs Date Time Temp Pulse Resp B/P (MAP) Pulse Ox O2 Delivery O2 Flow Rate FiO2 08/14/18 08:38 98.3 66 18 138/80 (99) 08/14/18 08:14 98 08/14/18 06:13 Room Air Laboratory Data 24H Labs Laboratory Tests 2 08/14/18 01:49: Nucleated Red Blood Cells % (auto) 0.0, Anion Gap 8, Glomerular Filtration Rate > 60.0, Calcium Level 8.8, Aspartate Amino Transf (AST/SGOT) 16, Alanine Aminotransferase (ALT/SGPT) 16, Alkaline Phosphatase 57, Total Bilirubin 0.2, Direct Bilirubin 0.1, Total Protein 8.6H, Albumin 4.1, Albumin/Globulin Ratio 0.91L, Thyroid Stimulating Hormone (TSH) 1.340, Salicylates Level < 1.7L, Urine Amphetamines Screen NEGATIVE, Urine Benzodiazepines Screen NEGATIVE, Urine Opiates Screen NEGATIVE, Urine Methadone Screen NEGATIVE, Acetaminophen Level < 2.0L, Urine Barbiturates Screen NEGATIVE, Urine Phencyclidine Screen NEGATIVE, Urine Cocaine Metabolite Screen NEGATIVE, Urine Cannabinoids Screen POSITIVEH, Ethyl Alcohol Level 0.082H CBC/BMP Laboratory Tests 08/14/18 01:49 Red Blood Count 4.68, Mean Corpuscular Volume 89.3, Mean Corpuscular Hemoglobin 31.0, Mean Corpuscular Hemoglobin Concent 34.7, Red Cell Distribution Width 12.5 Medications Scheduled PRN Albuterol Sulfate (Ventolin Hfa) 18 Gm Hfa.aer.ad, 2 PUFF INH Q4H PRN for SHORTNESS OF BREATH, (Reported) Allergies Coded Allergies: No Known Allergies (Unverified , 08/14/18) BASIL BHAGAT DO Aug 14, 2018 10:26
[2018-08-14 18:00] VITALS: BP 138/79
[2018-08-14] MEDS: OLANZapine ORAL DISINTEGRATING TAB 5MG PO PRN (22:47)
[2018-08-15 06:39] VITALS: BP 128/65
[2018-08-15] MEDS: SERTRALINE HCL 50 MG TAB PO SCH (09:23)
--- NOTE | 2018-08-15 13:18 | MHIPN ---
DATE: 08/15/2018 SUBJECTIVE: "I am tired and depressed, but I do not have any suicidal thoughts. There are no side effects from the medication." OBJECTIVE: He is a 22-year-old male who was admitted after the police brought him to the emergency room. He was intoxicated walking down the hallway and carrying a knife. The patient has a known history of psychotic illness and has a history of self harm behavior, recently discharged from the services and is currently homeless. Reportedly, he has been admitted to the hospital on 07/29/2018 for a breakup with his girlfriend. The patient reports that this is his coping mechanism to carry a knife, but he was not cutting himself. MENTAL STATUS EXAMINATION: He is casually dressed, cooperative, made good eye contact. Mood is depressed. Affect is constricted. Speech: Rate, rhythm and volume are good. Thought process is linear and goal directed. Thought content: Denied any delusions. Denied any suicidal or homicidal ideas. Cognition: He is alert and oriented to time, place, and person. Memory is intact. Insight and judgment are limited. VITAL SIGNS: Temperature 98.1, pulse 65, respiratory rate is 16, blood pressure is 128/65. MEDICATIONS: - sertraline 50 mg once daily LABORATORIES: CBC and CMP within normal limits. Toxicology was positive for cannabis. Ethyl alcohol 0.132. ASSESSMENT: 1. Depressive disorder, unspecified. PLAN: Continue current medication. Continue suicide watch. Estimated length of stay is 3 to 4 days.
[2018-08-15] MEDS: OLANZapine ORAL DISINTEGRATING TAB 5MG PO PRN (17:59)
[2018-08-15 18:10] VITALS: BP 114/55
[2018-08-16] MEDS: traZODone 50 MG TAB PO PRN ×2 (00:36→23:10)
[2018-08-16 06:33] VITALS: BP 114/59
[2018-08-16] MEDS: SERTRALINE HCL 50 MG TAB PO SCH (08:24)
--- NOTE | 2018-08-16 15:10 | MHIPN ---
DATE: 08/16/2018 SUBJECTIVE: I feel better. I do not have any thoughts of hurting myself. OBJECTIVE: He is a 22-year-old admitted who was admitted after police brought him to the emergency room. He was intoxicated and walking down the road carrying a knife. The patient has a history of psychiatric illness and self harm behavior. Recently discharged from the service, is currently homeless. The patient seems to be interacting better with the staff and peers, attending groups. MENTAL STATUS EXAMINATION: Causally dressed, cooperative, made good eye contact. Mood is depressed. Affect is constricted. Speech: Rate, rhythm, volume are good. Thought process: Linear, goal directed. Thought content: Denied any delusions. Denied any suicidal or homicidal ideas. He is alert and oriented to time, place, and person. Memory is intact. Insight and judgment are good. VITAL SIGNS: Temperature 97.1, respiratory rate is 12, pulse is 56, blood pressure 114/59. MEDICATIONS: Sertraline 50 mg once daily. ASSESSMENT: Depressive disorder, unspecified. PLAN: He is continued with current medication. The patient is improving. Estimated length stay: 3 to 4 days.
[2018-08-16 18:10] VITALS: BP 118/56
[2018-08-17 06:00] VITALS: BP 134/80
[2018-08-17] MEDS: SERTRALINE HCL 50 MG TAB PO SCH (08:03)
[2018-08-17] MEDS: OLANZapine ORAL DISINTEGRATING TAB 5MG PO PRN ×2 (08:03→16:47)
--- NOTE | 2018-08-17 12:23 | MHIPNPDOC ---
[facility] Progress Note Progress Note Inpatient Progress Note Stu Miner Age 22 Male Date of : 1995 Date of Service: 08/17/2018 History of Present Illness The patient, a 22-year old man, with a history of depression and a recent inpatient admission presents after being found walking down a street with a knife reportedly as a self-soothing measure. He has a noted history of cutting behaviors that he uses to soothe and that he reports he was fairly distraught after an argument with his girlfriend. 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 Interval History The patient is met with today. He describes that he still does not feel much improved over the weekend. His sertraline was not increased. He reports that he still struggles with loss of interest and focus problems as well as difficulty coping with others. He describes his suicidal ideation has resolved, but he still struggles to deal with his multiple stressors. Review Of Systems Denies any side effects associated with sertraline. Psychotherapy None on this visit. Vital Signs Reviewed. Mental Status Examination General: Well dressed with good hygiene Speech: Spontaneous and fluid Thought processes: Linear and logical MSK: Smooth and coordinated gait, no signs of tremors or involuntary orofacial movements Thought content: Hopeless, pessimistic Abstract reasoning, and computation: Intact Description of associations: Intact Description of abnormal or psychotic thoughts: Denies any suicidal or homicidal ideation. Denies any auditory or visual hallucinations. Does not appear to be responding to internal stimuli. Does not appear to be endorsing any bizarre or paranoid ideation. Judgment: Poor Insight: Poor Orientation: Alert and orientated 3 Cognition: Grossly normal Recent and remote memory: Intact Attention span and concentration: Mildy impaired Fund of knowledge: Adequate Mood: "Bad" Affect: Dysthymic with a constricted range Diagnoses Major depressive disorder, severe with psychotic features: Worsening. Tobacco use disorder, moderate: Stable. Assessment and Plan The patient, a 22-year-old man, with a history of service, but no overt trauma presents with a fairly severe depressive episode. He doesn't meet criteria for bipolar disorder, however, he'll likely need an antidepressant in order to keep his symptoms under control. Sertraline will be increased to 75 mg daily with clonidine 0.1 mg TID PRN. Discussed risks, benefits and potential side effects of this treatment. Disposition The patient will need greater than 2 midnights of inpatient admission in order to stabilize his depressive symptoms and to secure his safety. Time Spent 15 minutes [id number]. Vital Signs Vital Signs Date Time Temp Pulse Resp B/P (MAP) Pulse Ox O2 Delivery O2 Flow Rate FiO2 08/17/18 06:00 98.1 52 18 134/80 (98) 08/15/18 06:39 98 08/14/18 06:13 Room Air Current Medications Current Medications Acetaminophen (Tylenol Tab) 650 mg Q6HP PRN PO HEADACHE or DISCOMFORT; Start 08/14/18 at 07:00 Al Hydrox/Mg Hydrox/Simethicone (Mylanta) 30 ml Q4HP PRN PO HEARTBURN/INDIGESTION; Start 08/14/18 at 07:00 Home Med (Med Rec Complete!) ASDIRECTED XX ; Start 08/14/18 at 06:30; Stop 08/14/18 at 06:30; Status DC Magnesium Hydroxide (Milk Of Magnesia) 30 ml DAILYPRN PRN PO CONSTIPATION; Start 08/14/18 at 07:00 Nicotine (Nicoderm Cq 21mg) 1 patch DAILY PRN TD CRAVING; Start 08/14/18 at 07:00 Olanzapine (ZyPREXA ZYDIS) 5 mg Q6HP PRN PO ANXIETY/AGITATION Last administered on 08/17/18at 08:03; Start 08/14/18 at 22:45 Sertraline HCl (Zoloft) 50 mg DAILY PO Last administered on 08/17/18at 08:03; Start 08/15/18 at 09:00 Trazodone HCl (Desyrel) 50 mg QHSP PRN PO INSOMNIA Last administered on 08/16/18at 23:10; Start 08/14/18 at 07:00 Allergies Coded Allergies: No Known Allergies (Unverified , 08/14/18) BASIL BHAGAT DO Aug 17, 2018 12:23
[2018-08-17 18:00] VITALS: BP 137/66
[2018-08-18 06:46] VITALS: BP 133/69
[2018-08-18] MEDS: OLANZapine ORAL DISINTEGRATING TAB 5MG PO PRN (08:37)
[2018-08-18] MEDS ORDERED: SERTRALINE HCL 25 MG TABLET PO SCH (09:00)
--- NOTE | 2018-08-18 10:16 | MHIPNPDOC ---
[facility] Progress Note Progress Note Inpatient Progress Note Stu Miner Age 22 Male Date of : 1995 Date of Service: 08/18/2018 History of Present Illness The patient, a 22-year old man, with a history of depression and a recent inpatient admission presents after being found walking down a street with a knife reportedly as a self-soothing measure. He has a noted history of cutting behaviors that he uses to soothe and that he reports he was fairly distraught after an argument with his girlfriend. 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 Interval History The patient is met with today where he describes he is feeling much improved on the sertraline 75 mg and the clonidine for anxiety. He reports that he feels better and approaching baseline, being close to ready to go home. He has been going to groups and has been engaging on the unit. There's been no significant concerns raised by the treatment team during his stay. Review Of Systems The patient denies any symptoms of depression such as low mood, loss of interest, concentration, focus deficits and excessive guilt as well as excessive anxiety and worry that he had originally presented with. Denies any side effects from sertraline at this time. Psychotherapy None. Vital Signs Reviewed. Mental Status Examination General: Well dressed with good hygiene Speech: Spontaneous and fluid Thought processes: Linear and logical MSK: Smooth and coordinated gait, no signs of tremors or involuntary orofacial movements Thought content: Hopeless, pessimistic Abstract reasoning, and computation: Intact Description of associations: Intact Description of abnormal or psychotic thoughts: Denies any suicidal or homicidal ideation. Denies any auditory or visual hallucinations. Does not appear to be responding to internal stimuli. Does not appear to be endorsing any bizarre or paranoid ideation. Judgment: Improved Insight: Improved Orientation: Alert and orientated 3 Cognition: Grossly normal Recent and remote memory: Intact Attention span and concentration: Mildy impaired Fund of knowledge: Adequate Mood: "Good" Affect: Euthymic with a full range Diagnoses Major depressive disorder, severe with psychotic features: Improving, closing towards stability. Tobacco use disorder, moderate: Stable. Assessment and Plan The patient, a 22-year-old man, with a history of service, but no overt trauma presents with a fairly severe depressive episode. He doesn't meet criteria for bipolar disorder, however, he'll likely need an antidepressant in order to keep his symptoms under control. Increase sertraline to 100 mg daily as this will improve compliance as it's a single tablet. Continue clonidine 0.1 mg tid PRN for anxiety. Will likely approach readiness for discharged tomorrow as his depression has responded fairly well, demonstrating that likely his depression is still in the early stages. Compliance will likely be a major issue for his treatment. Disposition The patient will need further impatient admission in order to plan for a safe and effective discharge. Time Spent 15 minutes face to face. Friday Vital Signs Vital Signs Date Time Temp Pulse Resp B/P (MAP) Pulse Ox O2 Delivery O2 Flow Rate FiO2 08/18/18 06:46 98.7 51 18 133/69 (90) 08/15/18 06:39 98 08/14/18 06:13 Room Air Current Medications Current Medications Acetaminophen (Tylenol Tab) 650 mg Q6HP PRN PO HEADACHE or DISCOMFORT; Start 08/14/18 at 07:00 Al Hydrox/Mg Hydrox/Simethicone (Mylanta) 30 ml Q4HP PRN PO HEARTBURN/BRYSON GESTION; Start 08/14/18 at 07:00 Clonidine HCl (Catapres) 0.1 mg TIDP PRN PO anxiety; Start 08/17/18 at 17:30 Home Med (Med Rec Complete!) ASDIRECTED XX ; Start 08/14/18 at 06:30; Stop 08/14/18 at 06:30; Status DC Magnesium Hydroxide (Milk Of Magnesia) 30 ml DAILYPRN PRN PO CONSTIPATION; Start 08/14/18 at 07:00 Nicotine (Nicoderm Cq 21mg) 1 patch DAILY PRN TD CRAVING; Start 08/14/18 at 07:00 Olanzapine (ZyPREXA ZYDIS) 5 mg Q6HP PRN PO ANXIETY/AGITATION Last administered on 08/18/18at 08:37; Start 08/14/18 at 22:45 Sertraline HCl (Zoloft) 50 mg DAILY PO Last administered on 08/17/18at 08:03; Start 08/15/18 at 09:00; Stop 08/17/18 at 17:24; Status DC Sertraline HCl (Zoloft) 75 mg DAILY PO Last administered on 08/18/18at 08:37; Start 08/18/18 at 09:00 Trazodone HCl (Desyrel) 50 mg QHSP PRN PO INSOMNIA Last administered on 08/16/18at 23:10; Start 08/14/18 at 07:00 Allergies Coded Allergies: No Known Allergies (Unverified , 08/14/18) BASIL BHAGAT DO Aug 18, 2018 10:16
[2018-08-18] MEDS: cloNIDine 0.1 MG TAB PO PRN ×2 (14:06→20:33)
[2018-08-18 18:00] VITALS: BP 123/70
[2018-08-18] MEDS: traZODone 50 MG TAB PO PRN (22:40)
[2018-08-19 06:26] VITALS: BP 111/61
[2018-08-19] MEDS: cloNIDine 0.1 MG TAB PO PRN (06:26)
[2018-08-19 06:52] VITALS: BP 111/61
[2018-08-19] MEDS: SERTRALINE 100 MG TAB PO SCH (08:44)
--- NOTE | 2018-08-19 16:47 | MHIPNPDOC ---
[facility] Progress Note Progress Note Inpatient Progress Note Stu Miner Age 22 Male Date of : 1995 Date of Service: 08/19/2018 History of Present Illness The patient, a 22-year old man, with a history of depression and a recent inpatient admission presents after being found walking down a street with a knife reportedly as a self-soothing measure. He has a noted history of cutting behaviors that he uses to soothe and that he reports he was fairly distraught after an argument with his girlfriend. 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 Interval History The patient is met with shortly, he reports that he mood still varies, reports from staff is that patient doesn't attend groups remains isolated in rooms takes PRNs excessively. Reports worries about situation, his GF previously was a patie nt with-in 60 days, thus needs a wavier to visit. [facility], as he can't stay with GF as she is in the [facility]. Review Of Systems denies side effects of medications Psychotherapy None. Vital Signs Reviewed. Mental Status Examination General: fair hygiene Speech: Spontaneous and fluid Thought processes: Linear and logical MSK: Smooth and coordinated gait, no signs of tremors or involuntary orofacial movements Thought content: Hopeless, pessimistic Abstract reasoning, and computation: Intact Description of associations: Intact Description of abnormal or psychotic thoughts: Denies any suicidal or homicidal ideation. Judgment: fair Insight: fair Orientation: Alert and orientated 3 Cognition: Grossly normal Recent and remote memory: Intact Attention span and concentration: intact Fund of knowledge: Adequate Mood: "Good" Affect: dysthymic with constricted range Diagnoses Major depressive disorder, severe with psychotic features: worsening Tobacco use disorder, moderate: Stable. Assessment and Plan The patient, a 22-year-old man, with a history of service, but no overt trauma presents with a fairly severe depressive episode. He doesn't meet criteria for bipolar disorder, however, he'll likely need an antidepressant in order to keep his symptoms under control. Continue sertraline to 100 mg daily, d/c prn clonidine, will need to attend groups and cooperate with discharge planners and [facility] in order to be d/c'ed unclear if patient is hiding some symptoms, will need more monitoring off PRNs as could be over sedated. Disposition The patient will need further impatient admission in order to plan for a safe and effective discharge. Time Spent 10 minutes face to face. Vital Signs Vital Signs Date Time Temp Pulse Resp B/P (MAP) Pulse Ox O2 Delivery O2 Flow Rate FiO2 08/19/18 06:52 98.0 68 12 111/61 (78) 08/15/18 06:39 98 08/14/18 06:13 Room Air Current Medications Current Medications Acetaminophen (Tylenol Tab) 650 mg Q6HP PRN PO HEADACHE or DISCOMFORT; Start 08/14/18 at 07:00 Al Hydrox/Mg Hydrox/Simethicone (Mylanta) 30 ml Q4HP PRN PO HEARTBURN/INDIGESTION; Start 08/14/18 at 07:00 Clonidine HCl (Catapres) 0.1 mg TIDP PRN PO anxiety Last administered on 08/19/18at 06:26; Start 08/17/18 at 17:30; Stop 08/19/18 at 10:07; Status DC Home Med (Med Rec Complete!) ASDIRECTED XX ; Start 08/14/18 at 06:30; Stop 08/14/18 at 06:30; Status DC Magnesium Hydroxide (Milk Of Magnesia) 30 ml DAILYPRN PRN PO CONSTIPATION; Start 08/14/18 at 07:00 Nicotine (Nicoderm Cq 21mg) 1 patch DAILY PRN TD CRAVING; Start 08/14/18 at 07:00 Olanzapine (ZyPREXA ZYDIS) 5 mg Q6HP PRN PO ANXIETY/AGITATION Last administered on 08/18/18at 08:37; Start 08/14/18 at 22:45; Stop 08/18/18 at 13:50; Status DC Sertraline HCl (Zoloft) 50 mg DAILY PO Last administered on 08/17/18at 08:03; Start 08/15/18 at 09:00; Stop 08/17/18 at 17:24; Status DC Sertraline HCl (Zoloft) 75 mg DAILY PO Last administered on 08/18/18at 08:37; Start 08/18/18 at 09:00; Stop 08/18/18 at 13:50; Status DC Sertraline HCl (Zoloft) 100 mg DAILY PO Last administered on 08/19/18at 08:44; Start 08/19/18 at 09:00 Trazodone HCl (Desyrel) 50 mg QHSP PRN PO INSOMNIA Last administered on 08/18/18at 22:40; Start 08/14/18 at 07:00 Allergies Coded Allergies: No Known Allergies (Unverified , 08/14/18) BASIL BHAGAT DO Aug 19, 2018 16:47
[2018-08-19 18:00] VITALS: BP 119/58
[2018-08-19] MEDS: traZODone 50 MG TAB PO PRN (22:45)
[2018-08-20 06:45] VITALS: BP 119/59
[2018-08-20] MEDS: SERTRALINE 100 MG TAB PO SCH (08:01)
[2018-08-20 18:00] VITALS: BP 143/84
[2018-08-20] MEDS ORDERED: MIRTAZAPINE 15 MG TAB PO SCH (21:00)
[2018-08-21 07:05] VITALS: BP 116/61
[2018-08-21] MEDS: SERTRALINE 100 MG TAB PO SCH (08:02)
--- NOTE | 2018-08-21 12:20 | MHIPNPDOC ---
[facility] Progress Note Progress Note Inpatient Progress Note Stu Miner Age 22 Male Date of : 1995 Date of Service: 08/21/2018 History of Present Illness The patient, a 22-year old man, with a history of depression and a recent inpatient admission presents after being found walking down a street with a knife reportedly as a self-soothing measure. He has a noted history of cutting behaviors that he uses to soothe and that he reports he was fairly distraught after an argument with his girlfriend. 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 Interval History The patient is met with today where he describes that his depression has been slowly improving. He notices that he's more engaged and that he's able to speak to others and attend groups. He describes that his girlfriend has become more supportive and that he notices his engagement with the [facility] has given him newfound hope. He describes that he's somewhat upset about not being able to have his girlfriend visit during the regular hours due to her work schedule and asked for a pass to allow this. He was started on Remeron the previous evening by the on-call doctor for insomnia, but notes a headache since taking it. Review Of Systems As above. Denies any other side effects from medication. Psychotherapy None on this visit. Vital Signs Reviewed. Mental Status Examination General: Well dressed with good hygiene Speech: Spontaneous and fluid Thought processes: Linear and logical MSK: Smooth and coordinated gait, no signs of tremors or involuntary orofacial movements Thought content: Improved, future orientated Abstract reasoning, and computation: Intact Description of associations: Intact Description of abnormal or psychotic thoughts: Denies any suicidal or homicidal ideation. Denies any auditory or visual hallucinations. Does not appear to be responding to internal stimuli. Does not appear to be endorsing any bizarre or paranoid ideation. Judgment: Improved Insight: Improved Orientation: Alert and orientated 3 Cognition: Grossly normal Recent and remote memory: Intact Attention span and concentration: Intact Fund of knowledge: Adequate Mood: "Okay" Affect: Slightly dysthymic with a constricted range Diagnoses Major depressive disorder, severe with psychotic features: Improving, closing towards stability. Tobacco use disorder, moderate: Stable. Assessment and Plan The patient, a 22-year-old man, with a history of service, but no overt trauma presents with a fairly severe depressive episode. He doesn't meet criteria for bipolar disorder, however, he'll likely need an antidepressant in order to keep his symptoms under control. Continue sertraline 100 mg daily. Discontinue Remeron that was started on-call for sleep is causing headaches. Patient engaging well, speaking with the [facility] and we'll put order in for girlfriend to visit after hours as her work prohibits her from visiting during regular hours. Disposition The patient will need further inpatient admission in order to plan for a safe and effective discharge. Time Spent Fifteen minutes face to face. Friday Vital Signs Vital Signs Date Time Temp Pulse Resp B/P (MAP) Pulse Ox O2 Delivery O2 Flow Rate FiO2 08/21/18 07:05 98.4 58 12 116/61 (79) 08/15/18 06:39 98 Current Medications Current Medications Acetaminophen (Tylenol Tab) 650 mg Q6HP PRN PO HEADACHE or DISCOMFORT; Start 08/14/18 at 07:00 Al Hydrox/Mg Hydrox/Simethicone (Mylanta) 30 ml Q4HP PRN PO HEARTBURN/INDIGESTION; Start 08/14/18 at 07:00 Clonidine HCl (Catapres) 0.1 mg TIDP PRN PO anxiety Last administered on 08/19/18at 06:26; Start 08/17/18 at 17:30; Stop 08/19/18 at 10:07; Status DC Home Med (Med Rec Complete!) ASDIRECTED XX ; Start 08/14/18 at 06:30; Stop 08/14/18 at 06:30; Status DC Magnesium Hydroxide (Milk Of Magnesia) 30 ml DAILYPRN PRN PO CONSTIPATION; Start 08/14/18 at 07:00 Mirtazapine (Remeron) 15 mg QHS PO Last administered on 08/20/18at 21:45; Start 08/20/18 at 21:00 Nicotine (Nicoderm Cq 21mg) 1 patch DAILY PRN TD CRAVING; Start 08/14/18 at 07:00 Olanzapine (ZyPREXA ZYDIS) 5 mg Q6HP PRN PO ANXIETY/AGITATION Last administered on 08/18/18at 08:37; Start 08/14/18 at 22:45; Stop 08/18/18 at 13:50; Status DC Sertraline HCl (Zoloft) 50 mg DAILY PO Last administered on 08/17/18at 08:03; St art 08/15/18 at 09:00; Stop 08/17/18 at 17:24; Status DC Sertraline HCl (Zoloft) 75 mg DAILY PO Last administered on 08/18/18at 08:37; Start 08/18/18 at 09:00; Stop 08/18/18 at 13:50; Status DC Sertraline HCl (Zoloft) 100 mg DAILY PO Last administered on 08/21/18at 08:02; Start 08/19/18 at 09:00 Trazodone HCl (Desyrel) 50 mg QHSP PRN PO INSOMNIA Last administered on 08/19/18at 22:45; Start 08/14/18 at 07:00; Stop 08/20/18 at 21:36; Status DC Allergies Coded Allergies: No Known Allergies (Unverified , 08/14/18) BASIL BHAGAT DO Aug 21, 2018 12:20
[2018-08-21] MEDS: ACETAMINOPHEN TAB 650MG DOSE (2X325MG) PO PRN (15:08)
[2018-08-21 18:15] VITALS: BP 134/69
[2018-08-21] MEDS: RAMELTEON 8 MG TAB (ROZEREM) PO SCH (22:01)
[2018-08-22 06:57] VITALS: BP 113/71
[2018-08-22] MEDS: SERTRALINE 100 MG TAB PO SCH (08:55)
[2018-08-22 17:54] VITALS: BP 113/71
[2018-08-22 18:00] VITALS: BP 139/73
[2018-08-22 20:50] VITALS: BP 139/73
[2018-08-22] MEDS: RAMELTEON 8 MG TAB (ROZEREM) PO SCH (22:46)
[2018-08-23 07:05] VITALS: BP 107/58
[2018-08-23] MEDS: SERTRALINE 100 MG TAB PO SCH (08:21)
[2018-08-23 18:00] VITALS: BP 129/74
[2018-08-23] MEDS: RAMELTEON 8 MG TAB (ROZEREM) PO SCH (21:54)
[2018-08-24 07:04] VITALS: BP 129/64
[2018-08-24] MEDS: SERTRALINE 100 MG TAB PO SCH (08:04)
[2018-08-24] MEDS: ACETAMINOPHEN TAB 650MG DOSE (2X325MG) PO PRN (10:35)
--- NOTE | 2018-08-24 15:35 | MHIPNPDOC ---
[facility] Progress Note Progress Note Inpatient Progress Note Stu Miner Age 22 Male Date of : 1995 Date of Service: 08/24/2018 History of Present Illness The patient, a 22-year old man, with a history of depression and a recent inpatient admission presents after being found walking down a street with a knife reportedly as a self-soothing measure. He has a noted history of cutting behaviors that he uses to soothe and that he reports he was fairly distraught after an argument with his girlfriend. 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 Interval History The patient is met with today, where he describes that he's had some increased low mood. However, he notes it's difficult to sleep with the various work that's done on the unit, as well as all groups being canceled as it is not possible to do groups with the loud sound. He describes that he is still working through his emotions and whether he wishes to use talking to help with them. Over the weekend he did have an incident where he was found to be in the bathroom with his girlfriend during visitation and subsequently her visitation rights were revoked. The patient describes that he is interested in being discharged once he has housing settled. Review Of Systems Denies any side effects of the sertraline including GI, headache, tremors or lia st pain. Reports insomnia due to the loud sounds and some concentration problems. Psychotherapy None on this visit. Vital Signs Reviewed. Mental Status Examination General: Well dressed with good hygiene Speech: Spontaneous and fluid Thought processes: Linear and logical MSK: Smooth and coordinated gait, no signs of tremors or involuntary orofacial movements Thought content: Improved, future orientated Abstract reasoning, and computation: Intact Description of associations: Intact Description of abnormal or psychotic thoughts: Denies any suicidal or homicidal ideation. Denies any auditory or visual hallucinations. Does not appear to be responding to internal stimuli. Does not appear to be endorsing any bizarre or paranoid ideation. Judgment: Improved Insight: Improved Orientation: Alert and orientated 3 Cognition: Grossly normal Recent and remote memory: Intact Attention span and concentration: Intact Fund of knowledge: Adequate Mood: "Okay" Affect: Slightly dysthymic with a constricted range Diagnoses Major depressive disorder, severe with psychotic features: Improving, closing towards stability. Tobacco use disorder, moderate: Stable. Assessment and Plan The patient, a 22-year-old man, with a history of service, but no overt trauma presents with a fairly severe depressive episode. He doesn't meet criteria for bipolar disorder, however, he'll likely need an antidepressant in order to keep his symptoms under control. Increase sertraline to 150 mg daily to help with some of the decreased mood. He is still waiting for housing from the [facility] to return with an answer as to whether they're able to provide him housing while he will be an outpatient. Disposition The patient will need further inpatient admission in order to plan for a safe and effective discharge. Time Spent 20 minutes face to face. Friday Vital Signs Vital Signs Date Time Temp Pulse Resp B/P (MAP) Pulse Ox O2 Delivery O2 Flow Rate FiO2 08/24/18 07:04 98.6 55 12 129/64 (85) 08/23/18 16:51 Room Air 08/22/18 20:50 98 Current Medications Current Medications Acetaminophen (Tylenol Tab) 650 mg Q6HP PRN PO HEADACHE or DISCOMFORT Last administered on 08/24/18at 10:35; Start 08/14/18 at 07:00 Al Hydrox/Mg Hydrox/Simethicone (Mylanta) 30 ml Q4HP PRN PO HEARTBURN/INDIGESTION; Start 08/14/18 at 07:00 Clonidine HCl (Catapres) 0.1 mg TIDP PRN PO anxiety Last administered on 08/19/18at 06:26; Start 08/17/18 at 17:30; Stop 08/19/18 at 10:07; Status DC Home Med (Med Rec Complete!) ASDIRECTED XX ; Start 08/14/18 at 06:30; Stop 08/14/18 at 06:30; Status DC Magnesium Hydroxide (Milk Of Magnesia) 30 ml DAILYPRN PRN PO CONSTIPATION; Start 08/14/18 at 07:00 Mirtazapine (Remeron) 15 mg QHS PO Last administered on 08/20/18at 21:45; Start 08/20/18 at 21:00; Stop 08/21/18 at 17:51; Status DC Nicotine (Nicoderm Cq 21mg) 1 patch DAILY PRN TD CRAVING; Start 08/14/18 at 07:00 Olanzapine (ZyPREXA ZYDIS) 5 mg Q6HP PRN PO ANXIETY/AGITATION Last administered on 08/18/18at 08:37; Start 08/14/18 at 22:45; Stop 08/18/18 at 13:50; Status DC Ramelteon (Rozerem) 8 mg QHS PO Last administered on 08/23/18at 21:54; Start 08/21/18 at 21:00 Sertraline HCl (Zoloft) 50 mg DAILY PO Last administered on 08/17/18at 08:03; Start 08/15/18 at 09:00; Stop 08/17/18 at 17:24; Status DC Sertraline HCl (Zoloft) 75 mg DAILY PO Last administered on 08/18/18at 08:37; Start 08/18/18 at 09:00; Stop 08/18/18 at 13:50; Status DC Sertraline HCl (Zoloft) 100 mg DAILY PO Last administered on 08/24/18at 08:04; Start 08/19/18 at 09:00; Stop 08/24/18 at 13:45; Status DC Sertraline HCl (Zoloft) 150 mg DAILY PO ; Start 08/25/18 at 09:00 Trazodone HCl (Desyrel) 50 mg QHSP PRN PO INSOMNIA Last administered on 08/19/18at 22:45; Start 08/14/18 at 07:00; Stop 08/20/18 at 21:36; Status DC Allergies Coded Allergies: No Known Allergies (Unverified , 08/14/18) BASIL BHAGAT DO Aug 24, 2018 15:35
[2018-08-24 18:13] VITALS: BP 124/65
[2018-08-24] MEDS: RAMELTEON 8 MG TAB (ROZEREM) PO SCH (22:36)
[2018-08-25 06:49] VITALS: BP 110/59
[2018-08-25] MEDS: SERTRALINE HCL 50 MG TAB PO SCH (10:02)
--- NOTE | 2018-08-25 11:35 | MHIPNPDOC ---
[facility] Progress Note Progress Note Inpatient Progress Note Stu Miner Age 22 Male Date of : 1995 Date of Service: 08/25/2018 History of Present Illness The patient, a 22-year old man, with a history of depression and a recent inpatient admission presents after being found walking down a street with a knife reportedly as a self-soothing measure. He has a noted history of cutting behaviors that he uses to soothe and that he reports he was fairly distraught after an argument with his girlfriend. 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 Interval History The patient has met with today. He has been notably more depressed than his previous day after receiving multiple bad pieces of news and has been reporting suicidal ideation on the unit. He has come into a fight with his girlfriend and reports severe hopelessness and loss in interest. He reports wanting to isolate. He describes he has noticed no effects positive or negative from the sertraline 150 mg increase. Review Of Systems Denies any GI side effects. Reports increased hopelessness and concentration problems. Psychotherapy None on this visit. Vital Signs Reviewed. Mental Status Examination General: Well dressed with poor eye contact. Speech: Spontaneous and fluid Thought processes: Hopelessness. MSK: Smooth and coordinated gait, no signs of tremors or involuntary orofacial movements Thought content: Improved, future orientated Abstract reasoning, and computation: Intact Description of associations: Intact Description of abnormal or psychotic thoughts: Admits to suicidal thoughts. Denies homicidal thoughts. Denies auditory or visual hallucinations. Judgment: Poor. Insight: Poor. Orientation: Alert and orientated 3 Cognition: Grossly normal Recent and remote memory: Intact Attention span and concentration: Intact Fund of knowledge: Adequate Mood: "Bad." Affect: Profoundly dysthymic. Diagnoses Major depressive disorder, severe with psychotic features: Worsening. Tobacco use disorder, moderate: Stable. Assessment and Plan The patient, a 22-year-old man, with a history of service, but no overt trauma presents with a fairly severe depressive episode. He doesn't meet criteria for bipolar disorder, however, he'll likely need an antidepressant in order to keep his symptoms under control. Continue sertraline 150 mg daily and augment with Wellbutrin 150 mg daily. Patient will likely need a longer inpatient admission to treat these emergent sy mptoms. Disposition The patient will need a further inpatient admission in order to stabilize his profoundly severe suicidal thoughts and depressed mood. Time Spent 15 minutes [id number] Friday Vital Signs Vital Signs Date Time Temp Pulse Resp B/P (MAP) Pulse Ox O2 Delivery O2 Flow Rate FiO2 08/25/18 06:49 98.5 52 16 110/59 (76) 08/23/18 16:51 Room Air 08/22/18 20:50 98 Current Medications Current Medications Acetaminophen (Tylenol Tab) 650 mg Q6HP PRN PO HEADACHE or DISCOMFORT Last administered on 08/24/18at 10:35; Start 08/14/18 at 07:00 Al Hydrox/Mg Hydrox/Simethicone (Mylanta) 30 ml Q4HP PRN PO HEARTBURN/INDIGESTION; Start 08/14/18 at 07:00 Clonidine HCl (Catapres) 0.1 mg TIDP PRN PO anxiety Last administered on 08/19/18at 06:26; Start 08/17/18 at 17:30; Stop 08/19/18 at 10:07; Status DC Home Med (Med Rec Complete!) ASDIRECTED XX ; Start 08/14/18 at 06:30; Stop 08/14/18 at 06:30; Status DC Magnesium Hydroxide (Milk Of Magnesia) 30 ml DAILYPRN PRN PO CONSTIPATION; Start 08/14/18 at 07:00 Mirtazapine (Remeron) 15 mg QHS PO Last administered on 08/20/18at 21:45; Start 08/20/18 at 21:00; Stop 08/21/18 at 17:51; Status DC Nicotine (Nicoderm Cq 21mg) 1 patch DAILY PRN TD CRAVING; Start 08/14/18 at 07:00 Olanzapine (ZyPREXA ZYDIS) 5 mg Q6HP PRN PO ANXIETY/AGITATION Last administered on 08/18/18at 08:37; Start 08/14/18 at 22:45; Stop 08/18/18 at 13:50; Status DC Ramelteon (Rozerem) 8 mg QHS PO Last administered on 08/24/18at 22:36; Start 08/21/18 at 21:00 Sertraline HCl (Zoloft) 50 mg DAILY PO Last administered on 08/17/18at 08:03; Start 08/15/18 at 09:00; Stop 08/17/18 at 17:24; Status DC Sertraline HCl (Zoloft) 75 mg DAILY PO Last administered on 08/18/18at 08:37; Start 08/18/18 at 09:00; Stop 08/18/18 at 13:50; Status DC Sertraline HCl (Zoloft) 100 mg DAILY PO Last administered on 08/24/18at 08:04; Start 08/19/18 at 09:00; Stop 08/24/18 at 13:45; Status DC Sertraline HCl (Zoloft) 150 mg DAILY PO Last administered on 08/25/18at 10:02; Start 08/25/18 at 09:00 Trazodone HCl (Desyrel) 50 mg QHSP PRN PO INSOMNIA Last administered on 08/19/18at 22:45; Start 08/14/18 at 07:00; Stop 08/20/18 at 21:36; Status DC Allergies Coded Allergies: No Known Allergies (Unverified , 08/14/18) BASIL BHAGAT DO Aug 25, 2018 11:35
[2018-08-25] MEDS ORDERED: PILL CUTTER 1 EACH XX PRN (17:30)
[2018-08-25 18:33] VITALS: BP 147/70
[2018-08-25] MEDS: zolPIDEM TARTRATE 5 MG TAB PO PRN (21:03)
[2018-08-26 06:27] VITALS: BP 100/59
[2018-08-26] MEDS: buPROPion **XL** TABLET 150MG (WELLBUTRIN XL) PO SCH (09:04)
[2018-08-26] MEDS: SERTRALINE HCL 50 MG TAB PO SCH (09:04)
--- NOTE | 2018-08-26 10:37 | MHIPNPDOC ---
[facility] Progress Note Progress Note Inpatient Progress Note Stu Mienr Age 22 Male Date of : 1995 Date of Service: 08/26/2018 History of Present Illness The patient, a 22-year-old man, with a history of depression and a recent inpatient admission presents after being found walking down a street with a knife reportedly as a self-soothing measure. He has a noted history of cutting behaviors that he uses to soothe and that he reports he was fairly distraught after an argument with his girlfriend. 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 Interval History The patient is met with today. He was in his room sleeping. He describes that his sleep is "okay." However, he describes that his mood is still low. He reports that significant fighting with his girlfriend has made him much more depressed, hopeless, and unable to attend to his needs. He describes that he was curious as to why she was not allowed on the bang. It was explained to him about the situation with him being found in the bathroom with her and he appear to understand. The patient described that he wanted to try and focus on other options, but felt hopeless about returning home to his current social situation due to the variety of psychosocial stressors. Review Of Systems Denies any side effects of Wellbutrin or sertraline. Denies GI side effects or tremors. Psychotherapy None on this visit. Vital Signs Reviewed. Mental Status Examination General: Well dressed with poor eye contact. Speech: Spontaneous and fluid Thought processes: Hopelessness. MSK: Smooth and coordinated gait, no signs of tremors or involuntary orofacial movements Thought content: Improved, future orientated Abstract reasoning, and computation: Intact Description of associations: Intact Description of abnormal or psychotic thoughts: Admits to suicidal thoughts. Denies homicidal thoughts. Denies auditory or visual hallucinations. Judgment: Poor. Insight: Poor. Orientation: Alert and orientated 3 Cognition: Grossly normal Recent and remote memory: Intact Attention span and concentration: Intact Fund of knowledge: Adequate Mood: "Bad." Affect: Profoundly dysthymic. Diagnoses Major depressive disorder, severe with psychotic features: Worsening. Tobacco use disorder, moderate: Stable. Assessment and Plan The patient, a 22-year-old man, with a history of service, but no overt trauma presents with a fairly severe depressive episode. He doesn't meet criteria for bipolar disorder, however, he'll likely need an antidepressant in order to keep his symptoms under control. Continue sertraline 150 mg daily and augment with Wellbutrin 150 mg daily. Patient will likely need a longer inpatient admission to treat these emergent symptoms. Disposition The patient will need a further inpatient admission in order to stabilize his profoundly severe suicidal thoughts and depressed mood. Time Spent 15 minutes [id number] Friday Vital Signs Vital Signs Date Time Temp Pulse Resp B/P (MAP) Pulse Ox O2 Delivery O2 Flow Rate FiO2 08/26/18 06:27 97.2 57 14 100/59 (73) 08/23/18 16:51 Room Air 08/22/18 20:50 98 Current Medications Current Medications Acetaminophen (Tylenol Tab) 650 mg Q6HP PRN PO HEADACHE or DISCOMFORT Last administered on 08/24/18at 10:35; Start 08/14/18 at 07:00 Al Hydrox/Mg Hydrox/Simethicone (Mylanta) 30 ml Q4HP PRN PO HEARTBURN/INDIGESTION; Start 08/14/18 at 07:00 Bupropion HCl (Wellbutrin Xl) 150 mg DAILY PO Last administered on 08/26/18at 09:04; Start 08/26/18 at 09:00 Clonidine HCl (Catapres) 0.1 mg TIDP PRN PO anxiety Last administered on 08/19/18at 06:26; Start 08/17/18 at 17:30; Stop 08/19/18 at 10:07; Status DC Home Med (Med Rec Complete!) ASDIRECTED XX ; Start 08/14/18 at 06:30; Stop 08/14/18 at 06:30; Status DC Magnesium Hydroxide (Milk Of Magnesia) 30 ml DAILYPRN PRN PO CONSTIPATION; Start 08/14/18 at 07:00 Mirtazapine (Remeron) 15 mg QHS PO Last administered on 08/20/18at 21:45; Start 08/20/18 at 21:00; Stop 08/21/18 at 17:51; Status DC Nicotine (Nicoderm Cq 21mg) 1 patch DAILY PRN TD CRAVING; Start 08/14/18 at 07:00 Olanzapine (ZyPREXA ZYDIS) 5 mg Q6HP PRN PO ANXIETY/AGITATION Last administered on 08/18/18 08:37; Start 08/14/18 at 22:45; Stop 08/18/18 at 13:50; Status DC Ramelteon (Rozerem) 8 mg QHS PO Last administered on 08/24/18at 22:36; Start 08/21/18 at 21:00; Stop 08/25/18 at 17:12; Status DC Sertraline HCl (Zoloft) 50 mg DAILY PO Last administered on 08/17/18at 08:03; Start 08/15/18 at 09:00; Stop 08/17/18 at 17:24; Status DC Sertraline HCl (Zoloft) 75 mg DAILY PO Last administered on 08/18/18at 08:37; Start 08/18/18 at 09:00; Stop 08/18/18 at 13:50; Status DC Sertraline HCl (Zoloft) 100 mg DAILY PO Last administered on 08/24/18at 08:04; Start 08/19/18 at 09:00; Stop 08/24/18 at 13:45; Status DC Sertraline HCl (Zoloft) 150 mg DAILY PO Last administered on 08/26/18at 09:04; Start 08/25/18 at 09:00 Trazodone HCl (Desyrel) 50 mg QHSP PRN PO INSOMNIA Last administered on 08/19/18at 22:45; Start 08/14/18 at 07:00; Stop 08/20/18 at 21:36; Status DC Zolpidem Tartrate (Ambien) 2.5 mg QHSP PRN PO sleep Last administered on 08/25/18at 21:03; Start 08/25/18 at 17:15 Allergies Coded Allergies: No Known Allergies (Unverified , 08/14/18) BASIL BHAGAT DO Aug 26, 2018 10:37
[2018-08-26 18:31] VITALS: BP 118/57
[2018-08-26] MEDS: zolPIDEM TARTRATE 5 MG TAB PO PRN (22:04)
[2018-08-27 06:29] VITALS: BP 122/78
[2018-08-27] MEDS: buPROPion **XL** TABLET 150MG (WELLBUTRIN XL) PO SCH (08:41)
[2018-08-27] MEDS: SERTRALINE HCL 50 MG TAB PO SCH (08:41)
[2018-08-27 18:00] VITALS: BP 132/66
--- NOTE | 2018-08-27 18:19 | MHIPNPDOC ---
[facility] Progress Note Progress Note Inpatient Progress Note Stu Miner Age 22 Male Date of : 1995 Date of Service: 08/27/2018 History of Present Illness The patient, a 22-year-old man, with a history of depression and a recent inpatient admission presents after being found walking down a street with a knife reportedly as a self-soothing measure. He has a noted history of cutting behaviors that he uses to soothe and that he reports he was fairly distraught after an argument with his girlfriend. 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 Interval History The patient is met with today. He describes feeling much improved on day 2 of taking his Wellbutrin and sertraline combination. He describes that he has changed his mind set and that he has begun focusing on his depression and his difficulties with negative perception. He describes he is feeling much better and has been able to attend to his various needs and has had an overall good day. Staff have reported no concerns and have corroborated his improvement. The patient describes that he feels that he could be ready for discharge tomorrow. He does describe ambivalence feeling that the stressors will be a problem, but r eports a fairly effective plan that he has come up with in order to cope with his stressors and attend to his needs as an outpatient. Review Of Systems Denies any side effects from his medications at this time. No GI side effects or increased agitation. Improved mood, fatigue, and loss of interest. Psychotherapy None on this visit. Vital Signs Reviewed. Mental Status Examination General: Well dressed with good hygiene Speech: Spontaneous and fluid Thought processes: Linear and logical MSK: Smooth and coordinated gait, no signs of tremors or involuntary orofacial movements Thought content: Future orientated Abstract reasoning, and computation: Intact Description of associations: Intact Description of abnormal or psychotic thoughts: Denies any suicidal or homicidal ideation. Denies any auditory or visual hallucinations. Does not appear to be responding to internal stimuli. Does not appear to be endorsing any bizarre or paranoid ideation. Judgment: fair Insight: fair Orientation: Alert and orientated 3 Cognition: Grossly normal Recent and remote memory: Intact Attention span and concentration: Intact Fund of knowledge: Adequate Mood: "okay" Affect: Euthymic with a full range Diagnoses Major depressive disorder, severe with psychotic features: Stable. Tobacco use disorder, moderate: Stable. Assessment and Plan The patient, a 22-year-old man, with a history of service, but no overt trauma presents with a fairly severe depressive episode. He doesn't meet criteria for bipolar disorder, however, he'll likely need an antidepressant in order to keep his symptoms under control. Continue sertraline 150 mg daily and Wellbutrin 150 mg daily extended release. Disposition The patient has made significant improvement with the medication changes and has additionally focused on taking the recommendations and perspectives of others to hurt and has reported improvement in his ability to look at the positives in his world. He no longer meets involuntary criteria and wishes to be discharged [facility]. He is not elected to continue with the further involuntary inpatient admission. Time Spent 15 minutes [id number]. Vital Signs Vital Signs Date Time Temp Pulse Resp B/P (MAP) Pulse Ox O2 Delivery O2 Flow Rate FiO2 08/27/18 06:29 97.7 72 18 122/78 (93) 08/23/18 16:51 Room Air 08/22/18 20:50 98 Current Medications Current Medications Acetaminophen (Tylenol Tab) 650 mg Q6HP PRN PO HEADACHE or DISCOMFORT Last administered on 08/24/18at 10:35; Start 08/14/18 at 07:00 Al Hydrox/Mg Hydrox/Simethicone (Mylanta) 30 ml Q4HP PRN PO HEARTBURN/INDIGESTION; Start 08/14/18 at 07:00 Bupropion HCl (Wellbutrin Xl) 150 mg DAILY PO Last administered on 08/27/18at 08:41; Start 08/26/18 at 09:00 Clonidine HCl (Catapres) 0.1 mg TIDP PRN PO anxiety Last administered on 08/19/18at 06:26; Start 08/17/18 at 17:30; Stop 08/19/18 at 10:07; Status DC Home Med (Med Rec Complete!) ASDIRECTED XX ; Start 08/14/18 at 06:30; Stop 08/14/18 at 06:30; Status DC Magnesium Hydroxide (Milk Of Magnesia) 30 ml DAILYPRN PRN PO CONSTIPATION; Start 08/14/18 at 07:00 Mirtazapine (Remeron) 15 mg QHS PO Last administered on 08/20/18at 21:45; Start 08/20/18 at 21:00; Stop 08/21/18 at 17:51; Status DC Nicotine (Nicoderm Cq 21mg) 1 patch DAILY PRN TD CRAVING; Start 08/14/18 at 07:00 Olanzapine (ZyPREXA ZYDIS) 5 mg Q6HP PRN PO ANXIETY/AGITATION Last administered on 08/18/18at 08:37; Start 08/14/18 at 22:45; Stop 08/18/18 at 13:50; Status DC Ramelteon (Rozerem) 8 mg QHS PO Last administered on 08/24/18at 22:36; Start 08/21/18 at 21:00; Stop 08/25/18 at 17:12; Status DC Sertraline HCl (Zoloft) 50 mg DAILY PO Last administered on 08/17/18at 08:03; Start 08/15/18 at 09:00; Stop 08/17/18 at 17:24; Status DC Sertraline HCl (Zoloft) 75 mg DAILY PO Last administered on 08/18/18at 08:37; Start 08/18/18 at 09:00; Stop 08/18/18 at 13:50; Status DC Sertraline HCl (Zoloft) 100 mg DAILY PO Last administered on 08/24/18at 08:04; Start 08/19/18 at 09:00; Stop 08/24/18 at 13:45; Status DC Sertraline HCl (Zoloft) 150 mg DAILY PO Last administered on 08/27/18at 08:41; Start 08/25/18 at 09:00 Trazodone HCl (Desyrel) 50 mg QHSP PRN PO INSOMNIA Last administered on 08/19/18 22:45; Start 08/14/18 at 07:00; Stop 08/20/18 at 21:36; Status DC Zolpidem Tartrate (Ambien) 2.5 mg QHSP PRN PO sleep Last administered on 08/26/18at 22:04; Start 08/25/18 at 17:15 Allergies Coded Allergies: No Known Allergies (Unverified , 08/14/18) BASIL BHAGAT 18, 2019 18:19
[2018-08-27] MEDS: zolPIDEM TARTRATE 5 MG TAB PO PRN (23:15)
--- NOTE | 2018-08-28 06:34 | MHDSPDOC ---
[facility] Discharge Summary Discharge Summary DATE OF ADMISSION: Aug 14, 2018 at 06:56 DATE OF DISCHARGE: 08/28/18 Discharge Stu Miner Age 22 Male Date of : 1995 Date of Service: 08/28/2018 Diagnoses Major depressive disorder, severe, in full remission. Tobacco use disorder. History of Present Illness The patient, a 22-year-old man, with a history of depression and a recent inpatient admission presents after being found walking down a street with a knife reportedly as a self-soothing measure. He has a noted history of cutting behaviors that he uses to soothe and that he reports he was fairly distraught after an argument with his girlfriend. 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 Consultants Involved Hospitalist/PCP screening Treatment and Progress On The Unit The patient was admitted to the inpatient unit and subsequently observed. He did make some progress, but was noted to have difficulties with dependency, primarily with his girlfriend. He was started on low-dose sertraline at 50 mg and titrated up to 150 mg with positive effects, but not complete remission of his depression. Some psychosocial stressors in the form of negative news from his [facility] and several fights with his girlfriend made him feel more depressed, however, after starting Wellbutrin 150 mg extended release and focus psychotherapy, the patient was able to change his perspective and did fairly well, becoming euthymic and being free of suicidal thoughts for at least 24 hours prior to discharge. He described that he was feeling fairly ready for discharge at that time and described a fairly effective plan to be safe and attend to his needs as an outpatient. Discharge Assessment 22-year-old man with a history of severe depression and some substance use. He made significant progress on the unit. He has likely some internalizing features and a codependent relationship that undermine his mental health success. His medication regiment supported him, however, focus psychotherapy appeared to have a very positive effect on his outlook and ability to reframe his thoughts. Mental Status Examination General: Well dressed with good hygiene Speech: Spontaneous and fluid Thought processes: Linear and logical MSK: Smooth and coordinated gait, no signs of tremors or involuntary orofacial movements Thought content: Future orientated Abstract reasoning, and computation: Intact Description of associations: Intact Description of abnormal or psychotic thoughts: Denies any suicidal or homicidal ideation. Denies any auditory or visual hallucinations. Does not appear to be responding to internal stimuli. Does not appear to be endorsing any bizarre or paranoid ideation. Judgment: fair Insight: fair Orientation: Alert and orientated 3 Cognition: Grossly normal Recent and remote memory: Intact Attention span and concentration: Intact Fund of knowledge: Adequate Mood: "okay" Affect: Euthymic with a full range Follow Up The social work team worked during the predischarge meeting in order to evaluate for further issues of lethality address them fully before discharge. They worked on safety planning with the patient's family members in order to ensure that the patient will have a safe and effective discharge. Discharge Medications: Sertraline 150 mg daily and Wellbutrin 150 mg extended release daily. Time Spent The amount of time spent in the coordination of care for this patient was approximately 30 minutes. Friday Vital Signs/I&Os Vital Signs Date Time Temp Pulse Resp B/P (MAP) Pulse Ox O2 Delivery O2 Flow Rate FiO2 08/27/18 18:00 99.0 77 16 132/66 (88) 08/23/18 16:51 Room Air 08/22/18 20:50 98 Medications Scheduled Bupropion Hcl (Bupropion Xl) 150 Mg Tab.er.24h, 150 MG PO DAILY for mood for 7 Days, #7 Sertraline HCl (Sertraline HCl) 50 Mg Tablet, 150 MG PO DAILY for mood for 7 Days, #21 Scheduled PRN Albuterol Sulfate (Ventolin Hfa) 18 Gm Hfa.aer.ad, 2 PUFF INH Q4H PRN for SHORTNESS OF BREATH, (Reported) Nicotine (Nicotine Patch) 21 Mg Patch.td24, 1 PATCH TD DAILY PRN for CRAVING for 30 Days, #30 Allergies Coded Allergies: No Known Allergies (Unverified , 08/14/18) BASIL BHAGAT DO Aug 28, 2018 06:34
[2018-08-28 06:45] VITALS: BP 109/66
[2018-08-28] MEDS: SERTRALINE HCL 50 MG TAB PO SCH (08:10)
[2018-08-28] MEDS: buPROPion **XL** TABLET 150MG (WELLBUTRIN XL) PO SCH (08:10)
[2018-08-28] MEDS ORDERED: NICO21PAT TD ×2 (08:41→10:48)
[2018-08-28] MEDS ORDERED: BUPR150T3 PO ×2 (08:41→10:48)
[2018-08-28] MEDS ORDERED: SERT-155 PO ×2 (08:41→10:48)
== END 2018-08-28 11:03 | disposition home or self-care (01) | DRG 751 ==
LOC: M ED 01:39 → M ED INP 06:56 → M PSY 08:22
PROVIDERS: ADMIT Psychiatry & Neurology Psychiatry; ATTEND Psychiatry & Neurology Addiction Medicine
DX: F32.3 Major depressive disorder, single episode, severe with psychotic features (principal); F17.200 Nicotine dependence, unspecified, uncomplicated; J45.909 Unspecified asthma, uncomplicated; Z81.8 Family history of other mental and behavioral disorders; Z91.5 Personal history of self-harm

== ENCOUNTER → 2019-03-10 | Outpatient (CLI) | payer MEDICAID ==
[~2019-03-10] MED LIST changes: +BUPR150T3 PO; +NICO21PAT TD; +SERT50TA29 PO
--- NOTE | 2019-03-10 14:04 | REP ---
Right hand four views: There is a spiral fracture at the midshaft of the fourth digit metacarpal with 3/4 shaft width lateral displacement of the distal fracture fragment. There is no dislocation. Mineralization and joint spaces and skeletal structures are otherwise unremarkable. Impression: Fracture of the ring finger metacarpal as described. Electronically Signed by Darshan Albrecht MD 03/10/2019 01:55 P
== END ==
LOC: M RAD 13:32
PROVIDERS: ATTEND Physician Assistant
DX: S62.652A Nondisplaced fracture of middle phalanx of right middle finger, initial encounter for closed fracture (principal); X58.XXXA Exposure to other specified factors, initial encounter; Y92.89 Other specified places as the place of occurrence of the external cause

== ENCOUNTER 2020-03-04 08:46 | Emergency (ER) | payer OTHER ==
[~2020-03-04] VITALS: Ht 188 cm; Wt 79.5 kg
[~2020-03-04 08:46] MED LIST changes: -BUPR150T3 PO; +BUPR150T4 PO
[2020-03-04 09:32] LABS: HEMATOCRIT 37.7 % (42.0-52.0); HEMOGLOBIN 12.4 g/dl (13.5-17.5); MEAN CORPUSCULAR HEMOGLOBIN 29.2 pg (27.0-33.0); MEAN CORPUSCULAR HGB CONC 32.9 g/dl (32.0-36.5); MEAN CORPUSCULAR VOLUME 88.9 fl (80.0-96.0); PLATELET COUNT, AUTOMATED 254 10^3/uL (150-450); RED BLOOD COUNT 4.24 10^6/uL (4.30-6.10); WHITE BLOOD COUNT 3.4 10^3/uL (4.0-10.0)
[2020-03-04 09:53] LABS: AMPHETAMINES LEVEL URINE NEGATIVE (NEGATIVE); BARBITURATES URINE NEGATIVE (NEGATIVE); BENZODIAZEPINES URINE NEGATIVE (NEGATIVE); CANNABINOIDS URINE POSITIVE (NEGATIVE); COCAINE METABOLITE URINE NEGATIVE (NEGATIVE); METHADONE URINE NEGATIVE (NEGATIVE); OPIATES URINE NEGATIVE (NEGATIVE); PHENCYCLIDINE URINE NEGATIVE (NEGATIVE)
[2020-03-04 10:07] LABS: ACETAMINOPHEN LEVEL < 2.0 UG/ML (10.0-30.0); ALBUMIN 3.8 GM/DL (3.2-5.2); ALT/SGPT 16 U/L (12-78); BILIRUBIN,DIRECT < 0.1 MG/DL (0.0-0.2); BILIRUBIN,TOTAL 0.2 MG/DL (0.2-1.0); BLOOD UREA NITROGEN 16 MG/DL (7-18); CALCIUM LEVEL 9.2 MG/DL (8.5-10.1); CARBON DIOXIDE LEVEL 28 MEQ/L (21-32); CHLORIDE LEVEL 108 MEQ/L (98-107); CREATININE FOR GFR 0.97 MG/DL (0.70-1.30); ETHYL ALCOHOL (ETHANOL) < 0.003 % (0.000-0.010); GLOMERULAR FILTRATION RATE > 60.0 (>60); GLUCOSE, FASTING 112 MG/DL (70-100); POTASSIUM SERUM 3.6 MEQ/L (3.5-5.1); SALICYLATE LEVEL 3.4 MG/DL (5.0-30.0); SODIUM LEVEL 144 MEQ/L (136-145); THYROID STIMULATING HORMONE 0.616 uIU/ML (0.358-3.740); TOTAL PROTEIN 7.5 GM/DL (6.4-8.2)
[2020-03-04 14:32] LABS: RSV AMPLIFICATION NEGATIVE (NEGATIVE)
[2020-03-04] MEDS ORDERED: BUSP15TA47 PO (14:53)
[2020-03-04] MEDS ORDERED: D31000TA2 PO (14:53)
[2020-03-04] MEDS ORDERED: LAMO200T3 PO (14:53)
[2020-03-05 02:08] VITALS: BP 135/86
--- NOTE | 2020-03-05 08:09 | ECGEPIP ---
[facility] - ED Test Date: 2020-03-04 Pat Name: JORGE LUIS NERI Department: Room: - Gender: Male Chief Scientific Officer: : 1995 Requested By: MORALES Peterson Order Number: [id number] Reading MD: Valdemar Baum Measurements Intervals [place] Rate: 53 P: 73 MI: 178 QRS: 59 QRSD: 99 T: 12 QT: 430 QTc: 406 Interpretive Statements SINUS BRADYCARDIA BENIGN EARLY REPOLARIZATION NONSPECIFIC T WAVE ABNORMALITY(S) SIMILAR TO 01/07/18 Electronically Signed on 03-05-2020 8:09:41 EST by Valdemar Baum
== END 2020-03-05 02:12 ==
LOC: M ED 08:46
DX: R45.851 Suicidal ideations (principal); F33.9 Major depressive disorder, recurrent, unspecified; R00.1 Bradycardia, unspecified; J45.909 Unspecified asthma, uncomplicated
CPT/HCPCS: 36415; 80048; 80076; 80307; 84443; 85027; 87631; 93005; 99285; G0480